=== PATIENT | female | born 1940 | race African-American/Black ===

== ENCOUNTER 2017-01-07 04:27 | Emergency (ER) | payer MEDICAID, MEDICARE ==
[~2017-01-07] VITALS: Ht 160 cm; Wt 86.2 kg
[~2017-01-07 04:27] MED LIST: ADVAIR 250-501 EACH INH; ALEVE220 MG PO; AMLODIPINE BESY10 MG ORAL; ASPIRIN EC81 MG ORAL; CIPROFLOXACIN500 M2 ORAL; MELOXICAM15 MG PO; MOTRIN400 MG PO; NORCO 10-325 T1 EACH PO; NORCO 5-325 TA1 EACH ORAL; NORVASC5 MG PO; PERCOCET 5-3251 EACH PO; VICODIN 5-5001 EACH PO; ZOLPIDEM TARTRAT5 MG ORAL
--- NOTE | 2017-01-07 04:41 | Emergency Room Report ---
History of Present Illness General Chief Complaint: To Be Triaged Source: Patient, Family Member Present Illness HPI This is a 76-year-old female with history hypertension. She presents with injury from a fall. She was walking down the steps when she missed a step and fell down a flight of stairs. She landed her face against the wall. Also complaining of nasal pain, mouth pain, left rib pain and shoulder pain bilaterally. No knee pain. No back pain. No loss of consciousness. Onset just prior to arrival. Pain is 9/10. He's not on blood thinner other than baby aspirin. Allergies: Coded Allergies: PENICILLINS (Verified Allergy, Unknown, 03/01/12) Patient History Past Medical History: see triage record, old chart reviewed, HTN Past Surgical History: other Pertinent Family History: none Social History: Denies: smoking Now: No Immunizations: other Reviewed Nursing Documentation: PMH: Agreed, PSxH: Agreed Nursing Documentation-PMH Hx Cardiac Problems: Yes Hx Hypertension: Yes Hx Asthma: Yes Hx Cancer: No Hx Gastrointestinal Problems: No Hx Neurological Problems: No Hx Neurologic Surgery: Yes - LOWER BACK SURGERY-2005 Review of Systems Eye: Denies: blurred vision, eye pain ENT: Denies: ear pain, nose congestion, throat swelling Respiratory: Denies: cough, shortness of breath Cardiovascular: Reports: chest pain, Denies: palpitations Gastrointestinal: Denies: abdominal pain, diarrhea, nausea, vomiting Musculoskeletal: Reports: joint pain, Denies: back pain Skin: Denies: rash Neurological: Denies: headache, numbness Endocrine: Denies: increased thirst, increased urine Hematologic/Lymphatic: Denies: easy bruising All Other Systems: negative except mentioned in HPI Physical Exam Sp02 EP Interpretation: reviewed, normal General Appearance: well appearing, no apparent distress, alert Head: normocephalic, other - Edema to the nose. No septal hematoma. Eyes: bilateral eye EOMI, bilateral eye PERRL ENT: hearing grossly normal, normal pharynx, other - Small abrasion hematoma to the Midline of upper lip. No dental injury. Neck: full range of motion, supple, no meningismus Respiratory: lungs clear, normal breath sounds, other - Tenderness the left lateral rib. No ecchymosis. Cardiovascular #1: regular rate, rhythm, no murmur Gastrointestinal: normal bowel sounds, non tender, no mass, no organomegaly, no bruit, non-distended Musculoskeletal: back normal, gait/station normal, normal range of motion Psychiatric: mood/affect normal Skin: warm/dry Procedures Critical Care Time Critical Care Time Critical care is mandated in this patient who presented with traumatic SDH. Patient require my urgent intervention to attenuate the risks of neurological collapse which may lead to cardiovascular collapse and . Critical care time is 35 minutes excluding any reportable procedure. Critical care time included evaluation, multiple reevaluation, looking at old charts, interpreting laboratory and diagnostic data, discussing case with patient and family and consultants, and charting. Medical Decision Making Diagnostic Impression: Primary Impression: Subdural hematoma, acute Additional Impressions: Contusion of nose Qualified Codes: S00.33XA - Contusion of nose, initial encounter Cervical strain, acute Qualified Codes: S16.1XXA - Strain of muscle, fascia and tendon at neck level , initial encounter Ribs, multiple fractures Qualified Codes: S22.42XA - Multiple fractures of ribs, left side, initial encounter for closed fracture Degenerative disc disease, cervical ER Course Patient presents with a mechanical fall and sustained a small subdural hematoma. No midline shift. She is neurologically intact, GCS of 15. Because of the intracranial bleed, she will need to be [facility] I will sign out the transfer process to Dr. Ty. CT/MRI/US Diagnostic Results CT/MRI/US Diagnostic Results : Imaging Test Ordered: CT head, CT facial bones, CT cervical spine, and CT chest Impression All CT scans were read by radiologist. CT head: Tiny acute right subdural hematoma measuring 2-[address] C-spine: No acute fracture. Degenerative changes. CT facial bones: Soft tissue swelling of the nose. No fracture. CT chest: Minimally displaced left anterior sixth and seventh rib fracture. Probable nondisplaced left eighth rib fracture. Status: improved Disposition: XFER SHT-TRM HOSP Condition: Serious KENISHA BURRIS M.D. Jan 07, 2017 04:41
[2017-01-07] MEDS ORDERED: Norco 5mg/325mg tab ORAL ONE (04:45)
[2017-01-07 06:35] VITALS: BP 135/67
[2017-01-07 07:01] LABS: BASOPHILS % (AUTO) 0.7 % (0.0-2.0); LYMPHOCYTES % (AUTO) 24.4 % (20.0-45.0); MEAN CORPUSCULAR HEMOGLOBIN 26.7 PG (27.0-31.0); MEAN CORPUSCULAR HGB CONC 30.7 G/DL (32.0-36.0); MEAN CORPUSCULAR VOLUME 87 FL (80-99); MEAN PLATELET VOLUME 5.3 FL (6.5-10.1); NEUTROPHILS % (AUTO) 68.9 % (45.0-75.0); PLATELET COUNT 258 K/UL (150-450); RED BLOOD COUNT 4.27 M/UL (4.20-5.40); RED CELL DISTRIBUTION WIDTH 16.4 % (11.6-14.8); WHITE BLOOD COUNT 8.6 K/UL (4.8-10.8)
[2017-01-07 07:11] LABS: ANION GAP 13 (5-15); CALCIUM 9.3 mg/dL (8.6-10.2); CARBON DIOXIDE 30 mEQ/L (20-30); CHLORIDE 100 mEQ/L (98-107); CREATININE 0.8 mg/dL (0.5-0.9); HEMOLYSIS 0; POTASSIUM 3.6 mEQ/L (3.4-4.9); SODIUM 143 mEQ/L (135-145)
[2017-01-07 07:28] VITALS: BP 136/63
--- NOTE | 2017-01-07 07:29 | Emergency Room Report ---
History of Present Illness General Chief Complaint: Multiple Trauma/Fall Source: Patient, Family Member Present Illness Allergies: Coded Allergies: PENICILLINS (Verified Allergy, Unknown, 03/01/12) Patient History Now: No Nursing Documentation-PMH Hx Cardiac Problems: Yes Hx Hypertension: Yes Hx Asthma: Yes Hx Cancer: No Hx Gastrointestinal Problems: No Hx Neurological Problems: No Hx Neurologic Surgery: Yes - LOWER BACK SURGERY-2005 Physical Exam Vital Signs Date Time Temp Pulse Resp B/P Pulse Ox O2 Delivery O2 Flow Rate FiO2 01/07/17 04:38 98.1 71 18 126/69 93 Room Air 01/07/17 06:35 3.0 Procedures Critical Care Time Critical Care Time 40 minutes for clinical findings Including multiple rib fractures, intracranial hemorrhage Multiple repeat evaluations not including any procedural time Medical Decision Making Diagnostic Impression: Primary Impression: Subdural hematoma, acute Additional Impressions: Ribs, multiple fractures Qualified Codes: S22.42XA - Multiple fractures of ribs, left side, initial encounter for closed fracture Contusion of nose Qualified Codes: S00.33XA - Contusion of nose, initial encounter Degenerative disc disease, cervical Cervical strain, acute Qualified Codes: S16.1XXA - Strain of muscle, fascia and tendon at neck level , initial encounter ER Course Please defer to the initial note for the history exam and findings At this time patient's blood work is at baseline levels Contact was made with Omid Fox, I spoke to the neurosurgery occup therapist Who will graciously accepted patient At this time patient is having Q. 15 minutes neurological examinations Continues to remain GCS 15 hemodynamically appropriate There is no signs of any anticoagulation And further stabilized for a higher level of care transfer Labs Test 01/07/17 06:31 01/07/17 06:45 White Blood Count 8.6 K/UL (4.8-10.8) Red Blood Count 4.27 M/UL (4.20-5.40) Hemoglobin 11.4 G/DL (12.0-16.0) Hematocrit 37.3 % (37.0-47.0) Mean Corpuscular Volume 87 FL (80-99) Mean Corpuscular Hemoglobin 26.7 PG (27.0-31.0) Mean Corpuscular Hemoglobin Concent 30.7 G/DL (32.0-36.0) Red Cell Distribution Width 16.4 % (11.6-14.8) Platelet Count 258 K/UL (150-450) Mean Platelet Volume 5.3 FL (6.5-10.1) Neutrophils (%) (Auto) 68.9 % (45.0-75.0) Lymphocytes (%) (Auto) 24.4 % (20.0-45.0) Monocytes (%) (Auto) 5.0 % (1.0-10.0) Eosinophils (%) (Auto) 1.0 % (0.0-3.0) Basophils (%) (Auto) 0.7 % (0.0-2.0) Prothrombin Time 10.0 SEC (9.30-11.50) Prothromb Time International Ratio 1.0 (0.9-1.1) Activated Partial Thromboplast Time 25 SEC (23-33) Sodium Level 143 mEQ/L (135-145) Potassium Level 3.6 mEQ/L (3.4-4.9) Chloride Level 100 mEQ/L (98-107) Carbon Dioxide Level 30 mEQ/L (20-30) Anion Gap 13 (5-15) Blood Urea Nitrogen 12 mg/dL (7-23) Creatinine 0.8 mg/dL (0.5-0.9) Estimat Glomerular Filtration Rate mL/min (>60) Glucose Level 128 mg/dL (74-106) Calcium Level 9.3 mg/dL (8.6-10.2) Rhythm Strip Diag. Results EP Interpretation: yes Rate: 68 Rhythm: NSR, no PVC's, no ectopy Last Vital Signs Date Time Temp Pulse Resp B/P Pulse Ox O2 Delivery O2 Flow Rate FiO2 01/07/17 06:35 98.0 79 29 135/67 95 Nasal Cannula 3.0 Disposition: XFER SHT-TRM HOSP Condition: Critical Referrals: Rakesh Salazar MD (PCP) PORSHA MEDINA D.O. Jan 07, 2017 07:29
[2017-01-07 07:31] LABS: APPEARANCE,URINE SLIGHTLY CLOUDY; KETONES,URINE NEGATIVE (NEGATIVE); LEUKOCYTE ESTERASE ,URINE 3+ (NEGATIVE); NITRITE,URINE NEGATIVE (NEGATIVE); PH,URINE 6.5 (4.5-8.0); PROTEIN,URINE 2+ (NEGATIVE); UROBILINOGEN,URINE NORMAL MG/DL (0.0-1.0)
[2017-01-07 07:57] LABS: SQUAMOUS EPITHELIAL CELL,UR FEW /LPF (NONE/OCC)
[2017-01-07 08:43] VITALS: BP 134/62
--- NOTE | 2017-01-07 09:05 | Diagnostic Imaging Report ---
Indication: Trauma Technique: Continuous helical transaxial imaging of the maxillofacial structures obtained without intravenous contrast administration. Coronal 2-D reformats were also obtained. Study obtained in a Siemens sensation [address] Total Dose length Product (DLP): [address] Dose Index Volume (CTDIvol): 70.38, 28.19, 17.41, 26.15, 0.15 mGy Comparison: None Findings: No definite fracture is identified. The paranasal sinuses are essentially clear. Ostiomeatal units are clear bilaterally. The orbits appear normal. Bones are osteopenic in keeping with the patient's advanced age. Mastoids are clear bilaterally. There is soft tissue swelling over the nose. Impression: Facial soft tissue contusion. No acute fracture [facility] has communicated the preliminary results to the Emergency Department. Their findings are largely concordant with this report. The CT scanner at [facility] is accredited by the [employer] and the scans are performed using protocols designed to limit radiation exposure to as low as reasonably achievable to attain images of sufficient resolution adequate for diagnostic evaluation.
--- NOTE | 2017-01-07 09:09 | Diagnostic Imaging Report ---
Indication: Chest pain and trauma Technique: Continuous helical transaxial imaging of the chest was obtained from the thoracic inlet to the upper abdomen. No intravenous contrast was administered. Coronal 2-D reformats were also obtained. Total Dose length Product (DLP): Refer to CT facial mGycm CT Dose Index Volume (CTDIvol): Refer to CT facial mGy Comparison: none Findings: The left sixth and seventh ribs are fractured anteriorly, nondisplaced. There is no hematoma, pneumothorax, hemothorax or other associated traumatic findings. There are calcifications in the right pulmonary hilum consistent with old granulomatous disease. Aorta is ectatic and shows mural calcification. There is a hiatal hernia present. There are partially imaged cyst within the left kidney measuring in the upper of 6-7 cm. There is a nonobstructive 4 mm stone in the right kidney. Mild linear left basilar densities noted likely atelectasis. Minimal bronchiectasis noted at the lung bases. There is narrowing of intervertebral discs and accompanying endplate osteophyte formation throughout the thoracic spine. Hypertrophied facet joints also demonstrated.. Impression: No evidence of a left anterior chest wall trauma with nondisplaced fractures of the sixth and seventh ribs. No associated abnormalities or significant trauma identified. Spondylosis Hiatal hernia Atherosclerotic vascular disease Partially imaged cysts suggested within the left kidney. Nonobstructive 4 mm stone in the right kidney. Mild left basal atelectasis Mild basilar bronchiectasis. [facility] has communicated the preliminary results to the Emergency Department. Their findings are largely concordant with this report. The CT scanner at [facility] is accredited by the [employer] and the scans are performed using protocols designed to limit radiation exposure to as low as reasonably achievable to attain images of sufficient resolution adequate for diagnostic evaluation.
--- NOTE | 2017-01-07 09:16 | Diagnostic Imaging Report ---
Indication: Headache Technique: Contiguous 5 mm thick transaxial imaging of the head obtained in a Siemens Sensation [address] scanner. Soft tissue and bone windows generated. Total Dose length Product (DLP): Refer to CT facial mGycm CT Dose Index Volume (CTDIvol): Refer to CT facial mGy Comparison: none Findings: There is a tiny subdural hematoma right parafalcine location extending into the right tentorial reflection. Hematoma at maximum measures 2 mm. There is no associated edema or mass effect. Mild generalized atrophy of the brain in keeping with the patient's age demonstrated. Patchy low attenuation of white matter tracts also noted in the common at this age. Ventricles and basal cisterns appear normal. Impression: A 2 mm right parafalcine subdural hematoma with extension into the right tentorium. No associated mass effect or edema. Age-related changes within the brain as discussed above. The CT scanner at [facility] is accredited by the [employer] and the scans are performed using protocols designed to limit radiation exposure to as low as reasonably achievable to attain images of sufficient resolution adequate for diagnostic evaluation.
--- NOTE | 2017-01-07 09:40 | Diagnostic Imaging Report ---
Indication: Neck pain. Technique: Continuous helical imaging of the cervical spine was obtained transaxially from the skull base to the upper thoracic spine. 2-D coronal and sagittal reformatted images were obtained. Total Dose length Product (DLP): Refer to CT facial mGycm CT Dose Index Volume (CTDIvol): Refer to CT facial mGy Comparison: None Findings: There is no acute fracture or malalignment identified. There is no soft tissue swelling identified. Moderate uncovertebral arthritis is demonstrated at multiple levels. Some of the intervertebral discs show narrowing and osteophytes. Arterial vascular plaques are demonstrated within the carotid arteries. Impression: No acute injury Moderate spondylosis The CT scanner at [facility] is accredited by the [employer] and the scans are performed using protocols designed to limit radiation exposure to as low as reasonably achievable to attain images of sufficient resolution adequate for diagnostic evaluation.
[2017-01-07 10:03] VITALS: BP 138/66
[2017-01-07 10:06] VITALS: BP 138/66
--- NOTE | 2017-01-10 08:41 | Cardiology Report ---
APPROVED REPORT EKG Measurement Heart [id number] Sinus rhythm with sinus arrhythmia with occasional premature ventricular complexes Otherwise normal ECG
== END 2017-01-07 10:07 | disposition short-term general hospital (02) ==
LOC: EMR 04:56
DX: S06.5X0A Traumatic subdural hemorrhage without loss of consciousness, initial encounter (principal); S00.33XA Contusion of nose, initial encounter; S16.1XXA Strain of muscle, fascia and tendon at neck level, initial encounter; S22.42XA Multiple fractures of ribs, left side, initial encounter for closed fracture; W10.8XXA Fall (on) (from) other stairs and steps, initial encounter; Y93.9 Activity, unspecified; Y92.9 Unspecified place or not applicable; Y99.9 Unspecified external cause status; J34.89 Other specified disorders of nose and nasal sinuses; M50.30 Other cervical disc degeneration, unspecified cervical region; Z88.0 Allergy status to penicillin; I10 Essential (primary) hypertension; J45.909 Unspecified asthma, uncomplicated; R07.9 Chest pain, unspecified; M25.50 Pain in unspecified joint
CPT/HCPCS: 36415; 70450; 70486; 71250; 72125; 80048; 81001; 85025; 85610; 85730; 93005

== ENCOUNTER 2017-05-08 15:06 | Inpatient (IN) | payer MEDICARE ==
[~2017-05-08] VITALS: Ht 160 cm; Wt 81.6 kg
[2017-05-08 15:06] VITALS: BP 149/61
[~2017-05-08 15:06] MED LIST changes: +NORVASC10 MG ORAL
[2017-05-08] MEDS ORDERED: Norco 5mg/325mg tab ORAL ONE (15:30)
--- NOTE | 2017-05-08 15:32 | Emergency Room Report ---
History of Present Illness General Chief Complaint: Pain Source: Patient (Rosita Sandra) Present Illness HPI 76-year-old female presents to the emergency department complaining of 10 out of 10 in severity sharp left-sided hip pain x1 month. Patient states pain initially was progressive and now has become constant and she has had even more difficult time ambulating. Patient states she has a history of sciatica that has also been aggravated. Patient states she fall 3 months ago and fractured several ribs on the left side she denies having injury to the hip at that time. Patient denies erythema, swelling, increased temperature palpation. 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 Denies Fevers or chills. Denies numbness tingling or loss of sensation or gross motor movements of the extremities, incontinence of bowel or bladder. Denies CP, Palpitations, LOC, AMS, dizziness, Changes in Vision, Sensation, paresthesias, or a sudden severe headache. (Rosita Sandra) Allergies: Coded Allergies: PENICILLINS (Verified Allergy, Unknown, 03/01/12) Patient History Past Medical History: see triage record Past Surgical History: none Pertinent Family History: none Now: No Reviewed Nursing Documentation: PMH: Agreed, PSxH: Agreed (Rosita Sandra) Nursing Documentation-PMH Hx Cardiac Problems: Yes Hx Hypertension: Yes Hx Asthma: Yes Hx Cancer: No Hx Gastrointestinal Problems: No Hx Neurological Problems: No Hx Neurologic Surgery: Yes - LOWER BACK SURGERY-2005 (Rosita Sandra) Review of Systems All Other Systems: negative except mentioned in HPI (Rosita Sandra) Physical Exam Vital Signs Date Time Temp Pulse Resp B/P Pulse Ox O2 Delivery O2 Flow Rate FiO2 05/08/17 14:58 99.3 81 18 144/64 100 Room Air Sp02 EP Interpretation: reviewed, normal General Appearance: no apparent distress, alert, GCS 15, non-toxic Head: normocephalic, atraumatic Eyes: bilateral eye PERRL, bilateral eye normal inspection ENT: hearing grossly normal, normal pharynx, no angioedema, normal voice Neck: full range of motion, supple/symm/no masses Respiratory: lungs clear, normal breath sounds, speaking full sentences Cardiovascular #1: regular rate, rhythm, no edema Gastrointestinal: non tender, soft, no guarding, no rebound Rectal: deferred Genitourinary: normal inspection, no CVA tenderness Musculoskeletal: other - ROM is limited due to pain, POC is laying flat. , tender - TTP to the lateral left hip, upper glute and lumbar paraspinal muscles in addition to midline ttp. no erythema, increased temperature to palpation, obvious deformities or bruises noted. Neurologic: alert, oriented x3, responsive, motor strength/tone normal, sensory intact, speech normal, other - negative incontinence, no weakness Psychiatric: judgement/insight normal, memory normal, mood/affect normal Skin: normal color, no rash, warm/dry, well hydrated (Rosita Sandra.ACasandra) Medical Decision Making PA Attestation Dr. martinez is my supervising Physician whom patient management has been discussed with. (Rosita Sandra) Medicare Attestation The history of Crystal Jordan has been reviewed and management options for her have been examined and discussed by Zane Bush. I have personally examined and interviewed the patient. (ZANE BUSH M.D.) Diagnostic Impression: Primary Impression: Intractable pain Additional Impressions: Bulging discs Hip pain, left ER Course 76-year-old female presents to the emergency department complaining of 10 out of 10 in severity sharp left-sided hip pain x1 month. Patient states pain initially was progressive and now has become constant and she has had even more difficult time ambulating. Patient states she has a history of sciatica that has also been aggravated. Patient states she fall 3 months ago and fractured several ribs on the left side she denies having injury to the hip at that time. Patient denies erythema, swelling, increased temperature palpation. 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 Denies Fevers or chills. Denies numbness tingling or loss of sensation or gross motor movements of the extremities, incontinence of bowel or bladder. Denies CP, Palpitations, LOC, AMS, dizziness, Changes in Vision, Sensation, paresthesias, or a sudden severe headache. Ddx considered but are not limited to Fracture, dislocation, contusion, Sprain/ Strain/Spasm, Epidural abscess, Neoplastic mets. Vital signs: are WNL, pt. is afebrile H&PE are most consistent with musculoskeletal injury will perform imaging to r/ o fractures/dislocations. ORDERS: - CT PELVIS NO CONTRAST: no fractures, dislocations, mild-moderate bilateral hip degeneration, calcified uterine fibroids, small fatty umbilical hernia- per official radiology report. - CT L-SPINE NO CONTRAST: disc bulges and facet arthropathy, with narrowing of the central canal and neural foraminal in multiple levels please see official report for full detail, no evidence of fractures - Per official Radiology report. -CBC: unremarkable -BMP: unremarkable -UA: * Pending ED INTERVENTIONS: - [place] PO -4mg Morphine IM DISPOSITION: at this time pt. will be admitted to Dr. Giron for intractable pain and inability to complete ADL's. Dr. Giron agreed to admit the pt. and to continue pt. care management. Labs Test 05/08/17 18:20 White Blood Count 7.6 K/UL (4.8-10.8) Red Blood Count 3.34 M/UL (4.20-5.40) Hemoglobin 10.1 G/DL (12.0-16.0) Hematocrit 30.3 % (37.0-47.0) Mean Corpuscular Volume 91 FL (80-99) Mean Corpuscular Hemoglobin 30.2 PG (27.0-31.0) Mean Corpuscular Hemoglobin Concent 33.4 G/DL (32.0-36.0) Red Cell Distribution Width 14.2 % (11.6-14.8) Platelet Count 254 K/UL (150-450) Mean Platelet Volume 4.7 FL (6.5-10.1) Neutrophils (%) (Auto) 64.4 % (45.0-75.0) Lymphocytes (%) (Auto) 27.2 % (20.0-45.0) Monocytes (%) (Auto) 6.9 % (1.0-10.0) Eosinophils (%) (Auto) 1.0 % (0.0-3.0) Basophils (%) (Auto) 0.6 % (0.0-2.0) Sodium Level 140 mEQ/L (135-145) Potassium Level 3.9 mEQ/L (3.4-4.9) Chloride Level 101 mEQ/L (98-107) Carbon Dioxide Level 29 mEQ/L (20-30) Anion Gap 10 (5-15) Blood Urea Nitrogen 17 mg/dL (7-23) Creatinine 1.0 mg/dL (0.5-0.9) Estimat Glomerular Filtration Rate mL/min (>60) Glucose Level 91 mg/dL (74-106) Calcium Level 9.1 mg/dL (8.6-10.2) (Rosita Sandra) Last Vital Signs Date Time Temp Pulse Resp B/P Pulse Ox O2 Delivery O2 Flow Rate FiO2 05/08/17 15:06 99.2 84 17 149/61 100 Room Air (Rosita Sandra) Disposition: ADMITTED INPATIENT Condition: Serious Rosita Sandra May 08, 2017 15:32 ZANE BUSH M.D. May 12, 2017 08:25
[2017-05-08] MEDS ORDERED: Morphine Sulfate 4mg/ml Inj IVP ONE ×2 (18:00→19:00)
[2017-05-08 18:30] VITALS: BP 142/63
[2017-05-08 18:31] LABS: BASOPHILS % (AUTO) 0.6 % (0.0-2.0); LYMPHOCYTES % (AUTO) 27.2 % (20.0-45.0); MEAN CORPUSCULAR HEMOGLOBIN 30.2 PG (27.0-31.0); MEAN CORPUSCULAR HGB CONC 33.4 G/DL (32.0-36.0); MEAN CORPUSCULAR VOLUME 91 FL (80-99); MEAN PLATELET VOLUME 4.7 FL (6.5-10.1); MONOCYTES % (AUTO) 6.9 % (1.0-10.0); NEUTROPHILS % (AUTO) 64.4 % (45.0-75.0); PLATELET COUNT 254 K/UL (150-450); RED BLOOD COUNT 3.34 M/UL (4.20-5.40); RED CELL DISTRIBUTION WIDTH 14.2 % (11.6-14.8); WHITE BLOOD COUNT 7.6 K/UL (4.8-10.8)
[2017-05-08 18:44] LABS: ANION GAP 10 (5-15); CALCIUM 9.1 mg/dL (8.6-10.2); CARBON DIOXIDE 29 mEQ/L (20-30); CHLORIDE 101 mEQ/L (98-107); HEMOLYSIS 0; POTASSIUM 3.9 mEQ/L (3.4-4.9); SODIUM 140 mEQ/L (135-145)
[2017-05-08] MEDS ORDERED: Morphine Sulfate 2mg/ml Inj IVP PRN (21:00)
[2017-05-08] MEDS ORDERED: LORazepam Inj 2mg/ml 1ml IV PRN (21:00)
[2017-05-08] MEDS: Heparin 5000 units/ml inj SUBQ SCH (21:00)
[2017-05-08] MEDS ORDERED: Mylanta II UD 30ml ORAL PRN (21:00)
[2017-05-08] MEDS ORDERED: Miralax 17gm pkt ORAL PRN (21:00)
[2017-05-08] MEDS ORDERED: Zolpidem 5mg tab ORAL PRN (21:00)
[2017-05-08 21:23] VITALS: BP 146/96
[2017-05-08] MEDS: Norco 10mg/325mg tab ORAL PRN (23:25)
[2017-05-09] VITALS: BP 127/67
[2017-05-09 04:00] VITALS: BP 126/71
[2017-05-09] MEDS: Norco 10mg/325mg tab ORAL PRN (06:41)
[2017-05-09 06:51] LABS: MEAN CORPUSCULAR HGB CONC 32.5 G/DL (32.0-36.0); MEAN CORPUSCULAR VOLUME 92 FL (80-99); MEAN PLATELET VOLUME 5.6 FL (6.5-10.1); PLATELET COUNT 274 K/UL (150-450); RED BLOOD COUNT 3.32 M/UL (4.20-5.40); RED CELL DISTRIBUTION WIDTH 14.3 % (11.6-14.8); WHITE BLOOD COUNT 9.1 K/UL (4.8-10.8)
[2017-05-09 06:58] LABS: INR 0.9 (0.9-1.1); PROTHROMBIN TIME 9.8 SEC (9.30-11.50)
[2017-05-09 07:34] LABS: HEMOLYSIS 1; IRON 16 ug/dL (37-145); LACTATE DEHYDROGENASE 184 U/L (135-230); TOTAL IRON BINDING CAPACITY 177 ug/dL (250-400)
[2017-05-09 07:43] VITALS: BP 113/61
[2017-05-09 07:55] LABS: ALANINE AMINOTRANSFERASE 7 U/L (3-33); ALBUMIN/GLOBULIN RATIO 0.8 (1.0-2.7); ANION GAP 12 (5-15); ASPARTATE AMINO TRANSFERASE 13 U/L (5-40); CALCIUM 9.4 mg/dL (8.6-10.2); CARBON DIOXIDE 28 mEQ/L (20-30); CHLORIDE 105 mEQ/L (98-107); HEMOLYSIS 0; POTASSIUM 4.1 mEQ/L (3.4-4.9); SODIUM 145 mEQ/L (135-145); TOTAL PROTEIN 7.4 g/dL (6.6-8.7)
[2017-05-09] MEDS: Meloxicam 15 MG TAB ORAL SCH (08:10)
[2017-05-09] MEDS: Aspirin EC 81mg tab ORAL SCH (08:10)
[2017-05-09] MEDS: Heparin 5000 units/ml inj SUBQ SCH ×2 (08:14→21:10)
[2017-05-09 08:30] LABS: ERYTHROCYTE SEDIMENTATION RATE 112 MM/HR (0-30); PATH BLOOD SMEAR/OMC SENT TO PATHOLOGIST
--- NOTE | 2017-05-09 08:35 | Consultation ---
History of Present Illness General Date patient seen: May 10, 2017 Chief Complaint: Pain Present Illness Allergies: Coded Allergies: PENICILLINS (Verified Allergy, Unknown, 03/01/12) Medication History Scheduled Amlodipine Besylate (Norvasc), 10 MG ORAL DAILY, (Reported) Amlodipine Besylate* (Amlodipine Besylate*), 10 MG ORAL DAILY, (Reported) Aspirin Ec* (Aspirin Ec*), 81 MG ORAL DAILY, (Reported) Fluticasone/Salmeterol (Advair 250-50 Diskus), 1 PUFF INH DA, (Reported) Hydrocodone Bit/Acetaminophen 10-325* ([place] 10-325*), 1 TAB PO Q6H Meloxicam* (Meloxicam*), 15 MG PO DAILY, (Reported) Scheduled PRN Naproxen Sodium (Aleve), 220 MG PO TID PRN, (Reported) Zolpidem Tartrate* (Zolpidem Tartrate*), 5 MG ORAL BEDTIME PRN for Insomnia, ( Reported) Patient History Healthcare decision maker [place] Jordan Resuscitation status Full Code Advanced Directive on File Physical Exam Last 24 Hour Vital Signs Date Time Temp Pulse Resp B/P Pulse Ox O2 Delivery O2 Flow Rate FiO2 05/09/17 08:10 78 113/61 05/09/17 07:52 78 18 Nasal Cannula 2.0 05/09/17 07:52 Nasal Cannula 2.0 28 05/09/17 07:52 96 Nasal Cannula 2.0 28 05/09/17 07:43 97.7 69 20 113/61 98 Nasal Cannula 2.0 05/09/17 07:40 97.7 05/09/17 04:00 97.7 71 22 126/71 100 Nasal Cannula 2.0 05/09/17 00:00 98.5 71 19 127/67 100 Nasal Cannula 2.0 05/08/17 22:09 73 20 Nasal Cannula 2.0 05/08/17 22:09 94 Nasal Cannula 2.0 28 05/08/17 22:09 Nasal Cannula 2.0 28 05/08/17 21:23 97.3 76 16 146/96 95 Room Air 05/08/17 20:38 99.0 82 15 142/63 100 Room Air 05/08/17 18:55 99.0 05/08/17 18:30 99.0 82 15 142/63 100 Room Air 05/08/17 16:43 99.2 05/08/17 15:06 99.2 84 17 149/61 100 Room Air 05/08/17 14:58 99.3 81 18 144/64 100 Room Air Laboratory Tests Test 05/08/17 18:20 05/09/17 04:45 White Blood Count 7.6 K/UL (4.8-10.8) 9.1 K/UL (4.8-10.8) Red Blood Count 3.34 M/UL (4.20-5.40) L 3.32 M/UL (4.20-5.40) L Hemoglobin 10.1 G/DL (12.0-16.0) L 10.0 G/DL (12.0-16.0) L Hematocrit 30.3 % (37.0-47.0) L 30.6 % (37.0-47.0) L Mean Corpuscular Volume 91 FL (80-99) 92 FL (80-99) Mean Corpuscular Hemoglobin 30.2 PG (27.0-31.0) 30.0 PG (27.0-31.0) Mean Corpuscular Hemoglobin Concent 33.4 G/DL (32.0-36.0) 32.5 G/DL (32.0-36.0) Red Cell Distribution Width 14.2 % (11.6-14.8) 14.3 % (11.6-14.8) Platelet Count 254 K/UL (150-450) 274 K/UL (150-450) Mean Platelet Volume 4.7 FL (6.5-10.1) L 5.6 FL (6.5-10.1) L Neutrophils (%) (Auto) 64.4 % (45.0-75.0) % (45.0-75.0) Lymphocytes (%) (Auto) 27.2 % (20.0-45.0) % (20.0-45.0) Monocytes (%) (Auto) 6.9 % (1.0-10.0) % (1.0-10.0) Eosinophils (%) (Auto) 1.0 % (0.0-3.0) % (0.0-3.0) Basophils (%) (Auto) 0.6 % (0.0-2.0) % (0.0-2.0) Sodium Level 140 mEQ/L (135-145) 145 mEQ/L (135-145) Potassium Level 3.9 mEQ/L (3.4-4.9) 4.1 mEQ/L (3.4-4.9) Chloride Level 101 mEQ/L (98-107) 105 mEQ/L (98-107) Carbon Dioxide Level 29 mEQ/L (20-30) 28 mEQ/L (20-30) Anion Gap 10 (5-15) 12 (5-15) Blood Urea Nitrogen 17 mg/dL (7-23) 20 mg/dL (7-23) Creatinine 1.0 mg/dL (0.5-0.9) H 1.0 mg/dL (0.5-0.9) H Estimat Glomerular Filtration Rate mL/min (>60) mL/min (>60) Glucose Level 91 mg/dL (74-106) 103 mg/dL (74-106) Calcium Level 9.1 mg/dL (8.6-10.2) 9.4 mg/dL (8.6-10.2) Neutrophils % (Manual) Pending Lymphocytes % (Manual) Pending Platelet Estimate Pending Platelet Morphology Pending Erythrocyte Sedimentation Rate 112 MM/HR (0-30) H Reticulocyte Count Pending Prothrombin Time 9.8 SEC (9.30-11.50) Prothromb Time International Ratio 0.9 (0.9-1.1) Activated Partial Thromboplast Time 26 SEC (23-33) Iron Level 16 ug/dL (37-145) L Total Iron Binding Capacity 177 ug/dL (250-400) L Percent Iron Saturation 9 % (15-50) L Unsaturated Iron Binding 161 ug/dL (112-346) Total Bilirubin 0.5 mg/dL (0.0-1.2) Aspartate Amino Transf (AST/SGOT) 13 U/L (5-40) Alanine Aminotransferase (ALT/SGPT) 7 U/L (3-33) Alkaline Phosphatase 87 U/L (35-104) Lactate Dehydrogenase 184 U/L (135-230) Total Protein 7.4 g/dL (6.6-8.7) Albumin 3.5 g/dL (3.5-5.2) Globulin 3.9 g/dL Albumin/Globulin Ratio 0.8 (1.0-2.7) L Carcinoembryonic Antigen 1.6 ng/mL Vitamin B12 Level 275 pg/mL (211-946) Folate Pending Thyroid Stimulating Hormone (TSH) 3.050 uIU/mL (0.300-4.500) Height (Feet): 5 Height (Inches): 3.00 Weight (Pounds): 180 Medications Current Medications Medications (Trade) Dose Ordered Sig/[place] Route PRN Reason Start Time Stop Time Status Last Admin Dose Admin Acetaminophen (Tylenol) 650 mg Q4H PRN ORAL fever 05/08/17 21:00 06/07/17 20:59 Acetaminophen/ Hydrocodone Bitart ([place] 10/325) 1 ea Q6H PRN ORAL pain 4-7 05/08/17 21:00 05/15/17 20:59 05/09/17 06:41 Al Hydroxide/Mg Hydroxide (Mylanta II) 30 ml Q6H PRN ORAL dyspepsia 05/08/17 21:00 06/07/17 20:59 Albuterol/ Ipratropium (DuoNeb 0.5-3(2.5)mg/3ml) 3 ml Q4H PRN HHN Shortness of Breath 05/08/17 21:45 05/13/17 21:44 Amlodipine Besylate (Norvasc) 10 mg DAILY ORAL 05/09/17 09:00 06/08/17 08:59 05/09/17 08:10 Aspirin (Ecotrin) 81 mg DAILY ORAL 05/09/17 09:00 06/08/17 08:59 05/09/17 08:10 Dextrose (Dextrose 50%) STAT PRN IV Hypoglycemia 05/08/17 19:00 06/07/17 18:59 Dextrose (Dextrose 50%) STAT PRN IV Hypoglycemia 05/08/17 21:00 06/07/17 20:59 Heparin Sodium (Porcine) (Heparin 5000 units/ml) 5,000 units EVERY 12 HOURS SUBQ 05/08/17 21:00 06/07/17 20:59 05/09/17 08:14 Lorazepam (Ativan 2mg/ml 1ml) 0.5 mg Q4H PRN IV For Anxiety 05/08/17 21:00 05/15/17 20:59 Meloxicam (Mobic) 15 mg DAILY ORAL 05/09/17 09:00 06/08/17 08:59 05/09/17 08:10 Morphine Sulfate (Morphine Sulfate) 2 mg EVERY 4 HOURS PRN IVP For Pain 4-6 05/08/17 21:00 05/15/17 20:59 05/08/17 22:19 Morphine Sulfate (Morphine Sulfate) 4 mg Q4H PRN IVP For Pain 7-05/08/17 21:00 05/15/17 20:59 Ondansetron HCl (Zofran) 4 mg Q6H PRN IVP Nausea & Vomiting 05/08/17 21:00 06/07/17 20:59 Polyethylene Glycol (Miralax) 17 gm HSPRN PRN ORAL Constipation 05/08/17 21:00 06/07/17 20:59 Zolpidem Tartrate (Ambien) 5 mg HSPRN PRN ORAL Insomnia 05/08/17 21:00 06/07/17 20:59 Assessment/Plan Assessment/Plan (1) Lumbar Radiculopathy (2) Lumbar Herniated disc (3) Lumbar DDD (4) Lumbar Spondylosis (5) H/O Lumbar surgery (6) Chronic Lumbar compression fracture (7) Left hip pain seen dictated LY HOLLIADY May 09, 2017 08:35
[2017-05-09 08:44] LABS: RETICULOCYTE COUNT 1.1 % (0.0-2.0)
[2017-05-09] MEDS: Morphine Sulfate 4mg/ml Inj IVP PRN ×2 (08:49→12:41)
[2017-05-09 09:01] LABS: EOSINOPHILS % (MANUAL) 3 % (0-3); LYMPHOCYTES % (MANUAL) 20 % (20-45); NEUTROPHILS % (MANUAL) 65 % (45-75); TOTAL CELLS COUNTED 100
[2017-05-09 09:02] LABS: ANISOCYTOSIS 1+; BAND NEUTROPHILS % (MANUAL) 0 % (0-8); BASOPHILS % (MANUAL) 0 % (0-2); PLATELET ESTIMATE ADEQUATE; PLATELET MORPHOLOGY NORMAL
--- NOTE | 2017-05-09 09:29 | Diagnostic Imaging Report ---
Indications: PAIN Technique: Spiral acquisitions obtained through the lumbar spine. Multiplanar reconstructions were generated. No IV contrast utilized. Total dose length product 512 mGycm. CTDIvol(s) 19 mGy. Dose reduction achieved using automated exposure control Comparison: No comparison lumbar spine CT. Reference is made to abdomen pelvis CT dated 01/06/2016 Findings: There is a wedge compression fracture deformity of the L3 vertebral body, which was evident on the prior abdomen pelvis CT. The vertebral body heights are otherwise preserved. No acute fractures. There is slight posterior offset of L4 on L5, probably due to degenerative change. There is degenerative disc narrowing at L4-5. The the remaining disc spaces are preserved. At L1-2, facet proliferation and narrows the right neural foramen. There is mild circumferential annular bulge which does not significantly narrow the spinal canal. At L2-3, facet degeneration results in mild narrowing of the right neural foramen. Circumferential annular bulge, facet and ligamentum flavum hypertrophy result in mild spinal stenosis at this level. At L3-4, no significant neural foraminal narrowing. There is minimal narrowing of the spinal canal due to circumferential annular bulge, facet and ligamentum flavum hypertrophy. At L4-5, no significant disc bulge or protrusion or spinal stenosis. There is minimal bilateral neural foraminal stenosis. At L5-S1, there is moderate bilateral neural foraminal stenosis. There is circumferential annular bulge and posterior osteophyte formation, which results in mild narrowing of the spinal canal. The included extraspinal soft tissues demonstrates left hydronephrosis, also described previously, as well as large upper pole left renal cyst, incompletely included. There is a small calculus in the right upper calyx. This has also been previously reported. 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
--- NOTE | 2017-05-09 10:31 | Diagnostic Imaging Report ---
Indication: PAIN Technique: Noncontrast spiral acquisitions obtained through the pelvis. Multiplanar reconstructions generated. Total dose length product 402 mGycm. CTDIvol(s) 13 mGy. Dose reduction achieved using automated exposure control Comparison: None Findings: There are degenerative changes of the lower lumbar spine. Intact sacrum. The bilateral hips are intact. Intact pubic bones. Intact bilateral iliac wings. No evidence of significant soft tissue hematoma. The pelvic viscera are remarkable for the presence of old uterine fibroids. There is a small fat-containing umbilical hernia incidentally noted. Impression: No acute bony trauma Incidental findings as noted, including calcified uterine fibroids, small fat-containing umbilical hernia The CT scanner at [facility] is accredited by the [employer] and the scans are performed using protocols designed to limit radiation exposure to as low as reasonably achievable to attain images of sufficient resolution adequate for diagnostic evaluation.
[2017-05-09 12:00] VITALS: BP 110/60
--- NOTE | 2017-05-09 12:38 | Consultation ---
History of Present Illness General Date patient seen: May 09, 2017 Chief Complaint: Pain Referring physician: Dr. Salazar Reason for Consultation: EMI, asthma Present Illness HPI 76-year-old female with hx of asthma, EMI, on Bipap at home, presented to the emergency department complaining of 10 out of 10 in severity sharp left-sided hip pain x1 month. Patient states pain initially was progressive and now has become constant and she has had even more difficult time ambulating. Patient states she has a history of sciatica that has also been aggravated. Patient states she fall 3 months ago and fractured several ribs on the left side she denies having injury to the hip at that time. She is admitted for further work up. Allergies: Coded Allergies: PENICILLINS (Verified Allergy, Unknown, 03/01/12) Medication History Scheduled Amlodipine Besylate (Norvasc), 10 MG ORAL DAILY, (Reported) Amlodipine Besylate* (Amlodipine Besylate*), 10 MG ORAL DAILY, (Reported) Aspirin Ec* (Aspirin Ec*), 81 MG ORAL DAILY, (Reported) Fluticasone/Salmeterol (Advair 250-50 Diskus), 1 PUFF INH DA, (Reported) Hydrocodone Bit/Acetaminophen 10-325* ([place] 10-325*), 1 TAB PO Q6H Meloxicam* (Meloxicam*), 15 MG PO DAILY, (Reported) Scheduled PRN Naproxen Sodium (Aleve), 220 MG PO TID PRN, (Reported) Zolpidem Tartrate* (Zolpidem Tartrate*), 5 MG ORAL BEDTIME PRN for Insomnia, ( Reported) Patient History Healthcare decision maker [place] Jordan Resuscitation status Full Code Advanced Directive on File Past Medical/Surgical History Past Medical/Surgical History: (1) EMI (obstructive sleep apnea) (2) Asthma (3) Hypertension (4) Renal calculus, right Review of Systems All Other Systems: negative except mentioned in HPI Physical Exam General Appearance: WD/WN, no apparent distress Lines, tubes and drains: peripheral, central line HEENT: normocephalic, atraumatic, anicteric Neck: non-tender, normal alignment, supple Respiratory/Chest: chest wall non-tender, lungs clear, normal breath sounds, decreased breath sounds Breasts: no masses Cardiovascular/Chest: normal peripheral pulses Abdomen: normal bowel sounds, non tender Genitourinary/Rectal: normal genital exam Extremities: normal range of motion, non-tender Skin Exam: normal pigmentation Last 24 Hour Vital Signs Date Time Temp Pulse Resp B/P Pulse Ox O2 Delivery O2 Flow Rate FiO2 05/09/17 09:19 97.7 05/09/17 08:10 78 113/61 05/09/17 07:52 78 18 Nasal Cannula 2.0 05/09/17 07:52 Nasal Cannula 2.0 05/09/17 07:52 96 Nasal Cannula 2.0 28 05/09/17 07:43 97.7 69 20 113/61 98 Nasal Cannula 2.0 05/09/17 07:40 97.7 05/09/17 04:00 97.7 71 22 126/71 100 Nasal Cannula 2.0 05/09/17 00:00 98.5 71 19 127/67 100 Nasal Cannula 2.0 05/08/17 22:09 73 20 Nasal Cannula 2.0 05/08/17 22:09 94 Nasal Cannula 2.0 05/08/17 22:09 Nasal Cannula 2.0 05/08/17 21:23 97.3 76 16 146/96 95 Room Air 05/08/17 20:38 99.0 82 15 142/63 100 Room Air 05/08/17 18:55 99.0 05/08/17 18:30 99.0 82 15 142/63 100 Room Air 05/08/17 16:43 99.2 05/08/17 15:06 99.2 84 17 149/61 100 Room Air 05/08/17 14:58 99.3 81 18 144/64 100 Room Air Laboratory Tests Test 05/08/17 18:20 05/09/17 04:45 White Blood Count 7.6 K/UL (4.8-10.8) 9.1 K/UL (4.8-10.8) Red Blood Count 3.34 M/UL (4.20-5.40) L 3.32 M/UL (4.20-5.40) L Hemoglobin 10.1 G/DL (12.0-16.0) L 10.0 G/DL (12.0-16.0) L Hematocrit 30.3 % (37.0-47.0) L 30.6 % (37.0-47.0) L Mean Corpuscular Volume 91 FL (80-99) 92 FL (80-99) Mean Corpuscular Hemoglobin 30.2 PG (27.0-31.0) 30.0 PG (27.0-31.0) Mean Corpuscular Hemoglobin Concent 33.4 G/DL (32.0-36.0) 32.5 G/DL (32.0-36.0) Red Cell Distribution Width 14.2 % (11.6-14.8) 14.3 % (11.6-14.8) Platelet Count 254 K/UL (150-450) 274 K/UL (150-450) Mean Platelet Volume 4.7 FL (6.5-10.1) L 5.6 FL (6.5-10.1) L Neutrophils (%) (Auto) 64.4 % (45.0-75.0) % (45.0-75.0) Lymphocytes (%) (Auto) 27.2 % (20.0-45.0) % (20.0-45.0) Monocytes (%) (Auto) 6.9 % (1.0-10.0) % (1.0-10.0) Eosinophils (%) (Auto) 1.0 % (0.0-3.0) % (0.0-3.0) Basophils (%) (Auto) 0.6 % (0.0-2.0) % (0.0-2.0) Sodium Level 140 mEQ/L (135-145) 145 mEQ/L (135-145) Potassium Level 3.9 mEQ/L (3.4-4.9) 4.1 mEQ/L (3.4-4.9) Chloride Level 101 mEQ/L (98-107) 105 mEQ/L (98-107) Carbon Dioxide Level 29 mEQ/L (20-30) 28 mEQ/L (20-30) Anion Gap 10 (5-15) 12 (5-15) Blood Urea Nitrogen 17 mg/dL (7-23) 20 mg/dL (7-23) Creatinine 1.0 mg/dL (0.5-0.9) H 1.0 mg/dL (0.5-0.9) H Estimat Glomerular Filtration Rate mL/min (>60) mL/min (>60) Glucose Level 91 mg/dL (74-106) 103 mg/dL (74-106) Calcium Level 9.1 mg/dL (8.6-10.2) 9.4 mg/dL (8.6-10.2) Differential Total Cells Counted 100 Neutrophils % (Manual) 65 % (45-75) Lymphocytes % (Manual) 20 % (20-45) Monocytes % (Manual) 12 % (1-10) H Eosinophils % (Manual) 3 % (0-3) Basophils % (Manual) 0 % (0-2) Band Neutrophils 0 % (0-8) Platelet Estimate Adequate Platelet Morphology Normal Hypochromasia Anisocytosis 1+ Erythrocyte Sedimentation Rate 112 MM/HR (0-30) H Reticulocyte Count 1.1 % (0.0-2.0) Prothrombin Time 9.8 SEC (9.30-11.50) Prothromb Time International Ratio 0.9 (0.9-1.1) Activated Partial Thromboplast Time 26 SEC (23-33) Iron Level 16 ug/dL (37-145) L Total Iron Binding Capacity 177 ug/dL (250-400) L Percent Iron Saturation 9 % (15-50) L Unsaturated Iron Binding 161 ug/dL (112-346) Total Bilirubin 0.5 mg/dL (0.0-1.2) Aspartate Amino Transf (AST/SGOT) 13 U/L (5-40) Alanine Aminotransferase (ALT/SGPT) 7 U/L (3-33) Alkaline Phosphatase 87 U/L (35-104) Lactate Dehydrogenase 184 U/L (135-230) Total Protein 7.4 g/dL (6.6-8.7) Albumin 3.5 g/dL (3.5-5.2) Globulin 3.9 g/dL Albumin/Globulin Ratio 0.8 (1.0-2.7) L Carcinoembryonic Antigen 1.6 ng/mL Vitamin B12 Level 275 pg/mL (211-946) Folate Pending Thyroid Stimulating Hormone (TSH) 3.050 uIU/mL (0.300-4.500) Height (Feet): 5 Height (Inches): 3.00 Weight (Pounds): 180 Medications Current Medications Medications (Trade) Dose Ordered Sig/[place] Route PRN Reason Start Time Stop Time Status Last Admin Dose Admin Acetaminophen (Tylenol) 650 mg Q4H PRN ORAL fever 05/08/17 21:00 06/07/17 20:59 Acetaminophen/ Hydrocodone Bitart ([place] 10/325) 1 ea Q6H PRN ORAL pain 4-7 05/08/17 21:00 05/15/17 20:59 05/09/17 06:41 Al Hydroxide/Mg Hydroxide (Mylanta II) 30 ml Q6H PRN ORAL dyspepsia 05/08/17 21:00 06/07/17 20:59 Albuterol/ Ipratropium (DuoNeb 0.5-3(2.5)mg/3ml) 3 ml Q4H PRN HHN Shortness of Breath 05/08/17 21:45 05/13/17 21:44 Amlodipine Besylate (Norvasc) 10 mg DAILY ORAL 05/09/17 09:00 06/08/17 08:59 05/09/17 08:10 Aspirin (Ecotrin) 81 mg DAILY ORAL 05/09/17 09:00 06/08/17 08:59 05/09/17 08:10 Dextrose (Dextrose 50%) STAT PRN IV Hypoglycemia 05/08/17 19:00 06/07/17 18:59 Dextrose (Dextrose 50%) STAT PRN IV Hypoglycemia 05/08/17 21:00 06/07/17 20:59 Gabapentin (Neurontin) 100 mg THREE TIMES A DAY ORAL 05/09/17 09:00 06/08/17 08:59 05/09/17 08:49 Heparin Sodium (Porcine) (Heparin 5000 units/ml) 5,000 units EVERY 12 HOURS SUBQ 05/08/17 21:00 06/07/17 20:59 05/09/17 08:14 Lorazepam (Ativan 2mg/ml 1ml) 0.5 mg Q4H PRN IV For Anxiety 05/08/17 21:00 05/15/17 20:59 Meloxicam (Mobic) 15 mg DAILY ORAL 05/09/17 09:00 06/08/17 08:59 05/09/17 08:10 Morphine Sulfate (Morphine Sulfate) 2 mg EVERY 4 HOURS PRN IVP For Pain 4-6 05/08/17 21:00 05/15/17 20:59 05/08/17 22:19 Morphine Sulfate (Morphine Sulfate) 4 mg Q4H PRN IVP For Pain 7-05/08/17 21:00 05/15/17 20:59 05/09/17 08:49 Ondansetron HCl (Zofran) 4 mg Q6H PRN IVP Nausea & Vomiting 05/08/17 21:00 06/07/17 20:59 Polyethylene Glycol (Miralax) 17 gm HSPRN PRN ORAL Constipation 05/08/17 21:00 06/07/17 20:59 Zolpidem Tartrate (Ambien) 5 mg HSPRN PRN ORAL Insomnia 05/08/17 21:00 06/07/17 20:59 Assessment/Plan Problem List: (1) EMI (obstructive sleep apnea) ICD Codes: G47.33 - Obstructive sleep apnea (adult) (pediatric) SNOMED: 27367912 (2) Asthma ICD Codes: J45.909 - Unspecified asthma, uncomplicated SNOMED: 118026985 (3) Intractable back pain ICD Codes: M54.9 - Dorsalgia, unspecified SNOMED: 509463423 (4) Hypertension ICD Codes: I10 - Essential (primary) hypertension SNOMED: 17455433 Assessment/Plan resume BIPAP respiratory treatment pain management neuro evaluation LON PATTEN May 09, 2017 12:38
[2017-05-09 16:00] VITALS: BP 111/59
--- NOTE | 2017-05-09 16:57 | Diagnostic Imaging Report ---
Indication: PAIN low back pain left hip pain x1 month, history of fall 3 months ago, history of lumbar surgery in 2006 Technique: Sagittal T1 and T2 fast echo, sagittal STIR, axial T1 and T2 fast spin-echo, precontrast axial T1 fat saturated, postcontrast axial and coronal T1 fat saturated images of the lumbar spine and Comparison: Reference made to lumbar spine CT dated 05/08/2017 Findings: Bony alignment is normal. There is slight anterior wedge deformity of the L3 vertebral body, previously described to be chronic, and no associated marrow edema. Normal marrow signal elsewhere. There is degenerative disc narrowing at L4-5 and L5-S1. The remainder of the disc spaces are preserved. At T12-L1, L1-L2, no significant disc bulge or protrusion, spinal stenosis, or disc space narrowing. Right neural foraminal stenosis described on prior CT is not evident on this exam. At L2-3, the disc space is preserved. There is circumferential annular bulge, which does not narrow the spinal canal. There is mild compromise of the bilateral neural foramina by the bulging disc. Spinal stenosis reported on recent CT is not evident on MRI. At L3-4, there is mild circumferential annular bulge. This does not appear significantly compromise the spinal canal. The neural foramina are preserved. At L4-5, there is degenerative disc narrowing, moderate. No significant disc bulge or protrusion. Proliferative changes on the left do result in mild narrowing of the neural foramen. At L5-S1 there is considerable circumferential annular bulge and posterior disc protrusion. In addition, there are is disc material obliterating the left lateral recess. This measures approximately 7 mm AP by 9 mm transverse by 5 mm craniocaudad, and as much more apparent than on the CT images. There is also mild transverse canal stenosis due to the bulging disc as well as facet hypertrophy. There is mild bilateral neural foraminal compromise. The included extraspinal soft tissues are remarkable for the presence of left renal cysts and dilatation of the left renal pelvis.. Impression: Large left paracentral disc protrusion/extrusion in conjunction with circumferential annular bulge at L5-S1, which obliterates the left lateral recess, and would be likely to cause a left S1 radiculopathy. This is much more apparent on MRI than on earlier CT. Other degenerative changes as detailed on a level by level basis above. 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
--- NOTE | 2017-05-09 17:31 | Neurology Progress Note ---
Objective Physical Exam Last Vital Signs Date Time Temp Pulse Resp B/P Pulse Ox O2 Delivery O2 Flow Rate FiO2 05/09/17 16:00 99.7 95 19 111/59 93 Room Air 05/09/17 07:52 2.0 28 Laboratory Tests Test 05/08/17 18:20 05/09/17 04:45 White Blood Count 7.6 K/UL (4.8-10.8) 9.1 K/UL (4.8-10.8) Red Blood Count 3.34 M/UL (4.20-5.40) L 3.32 M/UL (4.20-5.40) L Hemoglobin 10.1 G/DL (12.0-16.0) L 10.0 G/DL (12.0-16.0) L Hematocrit 30.3 % (37.0-47.0) L 30.6 % (37.0-47.0) L Mean Corpuscular Volume 91 FL (80-99) 92 FL (80-99) Mean Corpuscular Hemoglobin 30.2 PG (27.0-31.0) 30.0 PG (27.0-31.0) Mean Corpuscular Hemoglobin Concent 33.4 G/DL (32.0-36.0) 32.5 G/DL (32.0-36.0) Red Cell Distribution Width 14.2 % (11.6-14.8) 14.3 % (11.6-14.8) Platelet Count 254 K/UL (150-450) 274 K/UL (150-450) Mean Platelet Volume 4.7 FL (6.5-10.1) L 5.6 FL (6.5-10.1) L Neutrophils (%) (Auto) 64.4 % (45.0-75.0) % (45.0-75.0) Lymphocytes (%) (Auto) 27.2 % (20.0-45.0) % (20.0-45.0) Monocytes (%) (Auto) 6.9 % (1.0-10.0) % (1.0-10.0) Eosinophils (%) (Auto) 1.0 % (0.0-3.0) % (0.0-3.0) Basophils (%) (Auto) 0.6 % (0.0-2.0) % (0.0-2.0) Sodium Level 140 mEQ/L (135-145) 145 mEQ/L (135-145) Potassium Level 3.9 mEQ/L (3.4-4.9) 4.1 mEQ/L (3.4-4.9) Chloride Level 101 mEQ/L (98-107) 105 mEQ/L (98-107) Carbon Dioxide Level 29 mEQ/L (20-30) 28 mEQ/L (20-30) Anion Gap 10 (5-15) 12 (5-15) Blood Urea Nitrogen 17 mg/dL (7-23) 20 mg/dL (7-23) Creatinine 1.0 mg/dL (0.5-0.9) H 1.0 mg/dL (0.5-0.9) H Estimat Glomerular Filtration Rate mL/min (>60) mL/min (>60) Glucose Level 91 mg/dL (74-106) 103 mg/dL (74-106) Calcium Level 9.1 mg/dL (8.6-10.2) 9.4 mg/dL (8.6-10.2) Differential Total Cells Counted 100 Neutrophils % (Manual) 65 % (45-75) Lymphocytes % (Manual) 20 % (20-45) Monocytes % (Manual) 12 % (1-10) H Eosinophils % (Manual) 3 % (0-3) Basophils % (Manual) 0 % (0-2) Band Neutrophils 0 % (0-8) Platelet Estimate Adequate Platelet Morphology Normal Hypochromasia Anisocytosis 1+ Erythrocyte Sedimentation Rate 112 MM/HR (0-30) H Reticulocyte Count 1.1 % (0.0-2.0) Prothrombin Time 9.8 SEC (9.30-11.50) Prothromb Time International Ratio 0.9 (0.9-1.1) Activated Partial Thromboplast Time 26 SEC (23-33) Iron Level 16 ug/dL (37-145) L Total Iron Binding Capacity 177 ug/dL (250-400) L Percent Iron Saturation 9 % (15-50) L Unsaturated Iron Binding 161 ug/dL (112-346) Total Bilirubin 0.5 mg/dL (0.0-1.2) Aspartate Amino Transf (AST/SGOT) 13 U/L (5-40) Alanine Aminotransferase (ALT/SGPT) 7 U/L (3-33) Alkaline Phosphatase 87 U/L (35-104) Lactate Dehydrogenase 184 U/L (135-230) Total Protein 7.4 g/dL (6.6-8.7) Albumin 3.5 g/dL (3.5-5.2) Globulin 3.9 g/dL Albumin/Globulin Ratio 0.8 (1.0-2.7) L Carcinoembryonic Antigen 1.6 ng/mL Vitamin B12 Level 275 pg/mL (211-946) Folate Pending Thyroid Stimulating Hormone (TSH) 3.050 uIU/mL (0.300-4.500) Impression/Recommendations Problems: (1) Degenerative disc disease at L5-S1 level (2) left sided S1 disk prolapse with radiculopathy,acute pain syndrom (3) Intractable back pain (4) elevated ESR (5) B12 deficiency Status: unchanged Recommendations #[id number] DANTE DUNCAN May 09, 2017 17:31
[2017-05-09] MEDS ORDERED: Vitamin B12 1000mcg/ml Inj IM ONE (18:30)
--- NOTE | 2017-05-09 19:51 | History & Physical ---
History and Physical History & Physicial Dictated for Int med-Dr Salazar no. [id number]. KIMBERLY ALDRICH May 09, 2017 19:51
[2017-05-09 20:00] VITALS: BP 140/67
--- NOTE | 2017-05-09 23:00 | History and Physical Report ---
DATE OF ADMISSION: 05/08/2017 CHIEF COMPLAINT: The patient is a 76-year-old female, who presents with complaint of low back pain. HISTORY OF PRESENT ILLNESS: It began approximately a month ago. The patient began to experience low back pain. Pain is now radiating to the left hip. The patient denies trauma. The patient denies heavy lifting. The patient presented to [facility]. The patient is admitted for intractable back pain to rule out lumbar spine stenosis. REVIEW OF SYSTEMS: Constitutional: The patient denies weight loss or weight gain. The patient denies fevers or chills. HEENT: The patient denies ear or throat pain. Cardiovascular: The patient denies palpitations or chest pain. Chest: The patient denies wheezes or shortness of breath. Abdomen: The patient denies nausea, vomiting, diarrhea, or constipation. Genitourinary: The patient denies dysuria or increased frequency of urination. Neuromuscular: The patient complains of back pain as above. The patient denies seizures or generalized weakness. PAST MEDICAL HISTORY: Significant for: 1. Hypertension. 2. History of cataracts. 3. Asthma. 4. Osteoarthritis. 5. Shoulder pain. PAST SURGICAL HISTORY: Significant for: 1. Removal of breast cyst. 2. Cataract surgery. CURRENT MEDICATIONS: 1. Norvasc 10 mg one tablet p.o. daily. 2. Aspirin 81 mg one tablet p.o. daily. 3. Advair 250/50 one puff p.o. twice daily. 4. [place] 10/325 mg one p.o. q.6 h. 5. Meloxicam 15 mg one tablet p.o. nightly. 6. Naprosyn 220 mg one tablet p.o. three times daily. 7. Ambien 5 mg one tablet p.o. nightly. ALLERGIES: Penicillin. SOCIAL HISTORY: The patient is . The patient denies tobacco or alcohol use. PHYSICAL EXAMINATION: VITAL SIGNS: Temperature 97.7, respirations 20, pulse 69, and blood pressure 113/61. GENERAL: The patient is a well-developed and well-nourished female, in no apparent distress. HEENT: Eyes, pupils are equal and responsive to light and accommodation. Extraocular movements are intact. NECK: Supple without lymphadenopathy. CHEST: Lungs are clear to auscultation bilaterally without wheezes or rales. CARDIOVASCULAR: Regular rhythm and rate. S1 and S2 normal without murmurs, rubs, or gallops. ABDOMEN: Soft, nontender, and nondistended. Positive bowel sounds. No evidence of hepatosplenomegaly. Currently, no rebound or guarding. EXTREMITIES: Negative for clubbing, cyanosis, or edema. RECTAL/GENITAL: Refused. NEUROLOGIC: Cranial nerves II through XII are grossly intact without focal deficits. Motor strength is 5/5 bilaterally. Deep tendon reflexes are 2+ plantar. IMAGING: A CT scan of the lumbar spine was essentially within normal limits. A CT of the pelvis is essentially within normal limits. LABORATORY STUDIES: WBC 7.6, hemoglobin 10.1, hematocrit 30.3, and platelets 254,000. Sodium 140, potassium 3.9, chloride 101, CO2 29, BUN 17, and creatinine 1.0. Glucose 91. ASSESSMENT: This is a 76-year-old female with: 1. Lumbar pain. 2. Radiculopathy to left hip. 3. Hypertension. 4. History of cataracts. 5. Asthma. 6. Osteoarthritis. TREATMENT: 1. Lumbar pain/radiculopathy. Neurology consultation has been obtained with Dr. Bernal. An MRI of the lumbar spine is pending. We will recommendations of Neurology. 2. Hypertension. Continue amlodipine as above. 3. History of cataracts. 4. Asthma. Continue Advair as above. 5. Osteoarthritis. Nate Jones M.D. DR: BHARATH JOB#: [id number] CC:
[2017-05-10 00:24] VITALS: BP 142/70
--- NOTE | 2017-05-10 00:45 | Consultation ---
DATE OF CONSULTATION: 05/09/2017 NEUROLOGICAL CONSULTATION CONSULTING PHYSICIAN: Anthony Bernal M.D. REQUESTING PHYSICIAN: Rakesh Salazar M.D. HISTORY OF PRESENT ILLNESS: This is a 76-year-old female, seen in neurological consultation to evaluate intractable low back pain. The patient informed me that about 2 months ago, she started to develop the pain in the left hip, left gluteus region at times radiating to left lower extremity. Over time, pain has become progressively worse in the last few days, which leveled 10/10, persistent, aggravated by any attempt to turn around or ambulate. The patient now recalled that about 3 months ago, she had an accidental fall landing on her left side. Due to severity of pain, she was brought to emergency room. Her vital signs on admission were stable, although her temperature was 99.3. Her initial diagnostic studies included mild anemia with hemoglobin 10.1 and hematocrit 30.3, elevated sedimentation rate of 112, coagulopathy, chemistry panel, normal TSH, and low B12 of 275. Coagulation panel normal. Imaging studies included a CT scan of the lumbar spine. This revealed a multilevel degenerative joint disease, chronic L2 compression fracture, and left hydronephrosis. Pelvic CT, no fracture or dislocation. MRI of the lumbosacral spine revealed a large left paracentral disc extrusion in conjunction with annual bulge of L5-S1, obliterating left lateral recess, probably causing left S1 radiculopathy, spinal stenosis and neuroforaminal stenosis, overall less striking on MRI than on CT. Chronic L2 compression fracture deformity was also noted. Since admission to present, there was some reduction in pain while patient is maintained on pain management. PAST MEDICAL HISTORY: The patient has a history of lumbar spine surgery in 2005. There is history of bronchial asthma, hypertension, and coronary artery disease. MEDICATIONS: Treatment prior to admission included amlodipine, aspirin, Advair, [place] p.r.n., meloxicam 15 mg, Naprosyn 220 mg t.i.d. and zolpidem. ALLERGIES: Penicillin. SOCIAL HISTORY: Lives with her family. There is no alcohol or drug abuse. Nonsmoker. FAMILY HISTORY: Noncontributory. REVIEW OF SYMPTOMS: Intractable left hip pain radiating to left lower extremity increasing with attempt to ambulate. Numbness and tingling in the left hand for the last few months. No pain or discomfort in the right upper or right lower extremity. Denies chest pain or palpitations. No respiratory problems. Denies abdominal pain, but has some urinary incontinence. She has nonproductive cough. PHYSICAL EXAMINATION: GENERAL: A well-developed, moderately obese female, lying on her right side. VITAL SIGNS: Stable. Temperature 99.7 degrees and blood pressure 111/59. HEENT: Head, normocephalic. No evidence of trauma. Eyes, ears, and throat are clear. NECK: Supple. No meningeal signs. MUSCULOSKELETAL EXAMINATION: Tenderness on palpation to cervical lumbar region. Straight leg raising test mildly positive on the left. There is urinary incontinence. PERIPHERAL PULSES: 1+ symmetric. NEUROLOGIC: Mental Status: She is alert and oriented x3 with no evidence of aphasia or apraxia. Cognitive function normal. Cranial Nerves CRANIAL NERVE II: Pupils both responding to light and accommodation. Extraocular movements intact. CRANIAL NERVE V: Normal corneal responses. CRANIAL NERVE VII: No facial asymmetry. CRANIAL NERVE VIII: Grossly normal hearing. CRANIAL NERVE IX THROUGH XII: Tongue is in midline. Symmetric palate elevation. MOTOR EXAMINATION: Revealed normal muscle tone and strength in both upper extremities. Normal strength in both lower extremities except 5-/5 with left foot dorsiflexion and hip flexion probably limited by pain. Deep tendon reflexes depressed in both upper and lower extremities. Plantar responses flexor. SENSORY EXAMINATION: Inconsistent, but appears normal to pinprick at times, with hypersensitivity to pin on the left leg. Gait not tested, but reportedly very antalgic. Able to get up and ambulate only with assistance. IMPRESSION: 1. Lumbar discogenic disease with significant left L5-S1 disc prolapse with radiculopathic pain. 2. Hypertension. 3. Chronic obstructive pulmonary disease. 4. Elevated sedimentation rate. 5. Mild anemia. 6. Obesity. 7. History of coronary artery disease. RECOMMENDATION: Presence of sedimentation rate to be followed by CRP, MANJINDER, and rheumatological studies to rule out collagen vascular disease. Continue with the pain management, anti-inflammatory agents. With the presence of intractable pain, the patient may be a good candidate for surgical treatment of L5-S1 disc prolapse. Spine surgery assessment is pending. Thank you for allowing me to see this interesting patient in neurological consultation. Anthony Bernal M.D. DR: EUSEBIO JOB#: [id number] CC:
--- NOTE | 2017-05-10 02:15 | Consultation ---
DATE OF CONSULTATION: 05/09/2017 PAIN MANAGEMENT CONSULTATION CONSULTING PHYSICIAN: Sean Duffy M.D. REFERRING PHYSICIAN: Prince Giron M.D. and Rakesh Salazar M.D. PHYSICIAN STICKER OPERATOR: Nima Drake CHIEF COMPLAINT: Low back pain. HISTORY OF PRESENT ILLNESS: This is a 76-year-old female who has been seen on the Med/Surg floor of [facility] for initial comprehensive pain management consultation. The patient has been having low back pain for many years, had back surgery eight years ago, however, for the past two months has been having chronic constant pain rating at 10/10, describing as sharp shooting pain radiating down bilateral extremities, left more than right, decreasing with movement, and nothing has been helping to relieve the pain. The patient reports that she had fallen about three months ago and since that time, the pain in her lower back has worsened. CT scan of lumbar spine was done, which showed chronic L3 compression fracture, multilevel degenerative disk disease and, however, has constant pain at that side, radiating to the left lower extremity. Pelvic CT was also done showing no acute bony trauma. At this time, the patient is on [place] 10/325 mg one tablet every six hours as needed for moderate pain and morphine 2 to 4 mg IV every four hours as needed for pain. We were consulted so that the patient would have adequate pain control while here in the hospital. PAST MEDICAL HISTORY: Hypertension and asthma. PAST SURGICAL HISTORY: Lumbar surgery. ALLERGIES: Penicillin. MEDICATIONS: [place]. SOCIAL HISTORY: Denies smoking tobacco, drinking alcohol, or drug abuse. REVIEW OF SYSTEMS: Denies rash, fever, chills, sweating, dizziness, drowsiness, blurred vision, sore throat, or change in hearing. No nausea, vomiting, diarrhea, or blood in stool or urine. No bowel or bladder incontinence. No dysuria. The patient has been complaining of low back pain. PHYSICAL EXAMINATION: GENERAL: Alert, awake, and oriented. VITAL SIGNS: Stable. HEENT: PERRLA. NECK: Range of motion is full in all directions. No tenderness to paracervical muscles. No adenopathy. LUNGS: Decreased breath sounds bilaterally. HEART: S1 and S2, regular. ABDOMEN: Obese. BACK: Range of motion is decreased in flexion and extension with tenderness to paraspinal muscles, trapezius, and rhomboid muscles with surgical scar noted in midline of lumbar spine. EXTREMITIES: Upper extremity range of motion is full in all directions. Motor is intact. No cyanosis. No clubbing. No edema. Sensory is intact. Reflexes are unobtainable . No adenopathy. Lower extremity range of motion is decreased due to the patient's clinical condition. Motor being on the right 4/5 in all muscles. On the left, unable to obtain due to the patient's clinical condition with positive straight leg raising. No cyanosis. No clubbing. Sensory is intact. Reflexes are unobtainable . No adenopathy. ASSESSMENT AND PLAN: This is a 76-year-old female with lumbar radiculopathy, lumbar herniated disk, lumbar degenerative disk disease, lumbar spondylosis, history of lumbar surgery, chronic lumbar compression fracture, left hip pain. The patient will be continued on morphine and [place], will be started on Neurontin 100 mg three times a day. At this time, we will be ordering an MRI of the lumbar spine and left hip with and without contrast to rule out further pathology. The patient was discussed with Dr. Duffy and Dr. Duffy concurred. We will follow the patient. Thank you very much for the courtesy of this consultation. Sean Duffy M.D. LAURA Drake DR: Varsha JOB#: [id number] CC: KAMILLA
[2017-05-10 04:00] VITALS: BP 138/74
[2017-05-10 05:52] LABS: BASOPHILS % (AUTO) 0.5 % (0.0-2.0); EOSINOPHILS % (AUTO) 1.8 % (0.0-3.0); LYMPHOCYTES % (AUTO) 31.9 % (20.0-45.0); MEAN CORPUSCULAR HEMOGLOBIN 28.7 PG (27.0-31.0); MEAN CORPUSCULAR HGB CONC 30.9 G/DL (32.0-36.0); MEAN CORPUSCULAR VOLUME 93 FL (80-99); MEAN PLATELET VOLUME 5.3 FL (6.5-10.1); MONOCYTES % (AUTO) 8.7 % (1.0-10.0); NEUTROPHILS % (AUTO) 57.2 % (45.0-75.0); PLATELET COUNT 260 K/UL (150-450); RED BLOOD COUNT 3.36 M/UL (4.20-5.40); RED CELL DISTRIBUTION WIDTH 14.5 % (11.6-14.8); WHITE BLOOD COUNT 10.1 K/UL (4.8-10.8)
[2017-05-10 06:27] LABS: ANION GAP 9 (5-15); CALCIUM 9.1 mg/dL (8.6-10.2); CARBON DIOXIDE 30 mEQ/L (20-30); CHLORIDE 105 mEQ/L (98-107); CREATININE 1.1 mg/dL (0.5-0.9); HEMOLYSIS 1; POTASSIUM 4.5 mEQ/L (3.4-4.9); SODIUM 144 mEQ/L (135-145)
[2017-05-10 08:03] VITALS: BP 119/60
[2017-05-10] MEDS: Aspirin EC 81mg tab ORAL SCH (08:31)
[2017-05-10] MEDS: Meloxicam 15 MG TAB ORAL SCH (08:31)
[2017-05-10] MEDS: Heparin 5000 units/ml inj SUBQ SCH ×2 (09:25→21:56)
[2017-05-10 11:29] VITALS: BP 123/72
--- NOTE | 2017-05-10 13:20 | Diagnostic Imaging Report ---
Indications: Left hip pain for one month, fall 3 months ago Technique: Coronal and axial T1-weighted fast spin-echo and STIR differences the pelvis, coronal, sagittal, and axial proton density weighted fat saturated fast spin echo sequences of the left hip performed without IV or intra-articular gadolinium administration. Findings: Comparison: CT pelvis 05/08/2017 Small amount of fluid is present in each hip joint space, relatively symmetric. Bilateral acetabula a femoral heads demonstrate normal configuration and marrow signal characteristics. No fracture, other marrow edema, lytic destruction, or other acute change demonstrated. No significant degenerative change, avascular necrosis, or other chronic change demonstrated. Surrounding soft tissues are unremarkable and symmetric side to side. Lower lumbar disc spaces are narrowed with marginal osteophyte formation. Apparent focal posterior disc protrusion at L5-S1. Bilateral sacroiliac joints intact, unremarkable in appearance. Multiple circumscribed masses in the/emanating from the uterine myometrium, largest 3.7 cm, hypointense on STIR images. Mild edema in the subcutaneous soft tissues of the perineum and in the left posterior paraspinous musculature at the level of S1. IMPRESSION: Unremarkable left hip Lumbar degenerative spondylosis. See report of upper MRI lumbar spine performed concurrently Uterine fibroids Perineal subcutaneous and upper sacral posterior paraspinous intramuscular edema, nonspecific
--- NOTE | 2017-05-10 14:56 | General Progress Note ---
Assessment/Plan Assessment/Plan (1) Lumbar Radiculopathy (2) Lumbar Herniated disc (3) Lumbar DDD (4) Lumbar Spondylosis (5) H/O Lumbar surgery (6) Chronic Lumbar compression fracture (7) Left hip pain Pt will continue Morphine, [place] and increase Neurontin to 200mg. We recommend spine consultation as per drag car racer D/w Dr. Duffy and he concurred. Subjective Date patient seen: May 10, 2017 Time patient seen: 02:00 - pm Allergies: Coded Allergies: PENICILLINS (Verified Allergy, Unknown, 03/01/12) Subjective REVIEW OF SYSTEMS: Denies rash, fever, chills, sweating, dizziness, drowsiness, blurred vision, sore throat, or change in hearing. No nausea, vomiting, diarrhea, or blood in stool or urine. No bowel or bladder incontinence. No dysuria. The patient has been complaining of low back pain. SUBJECTIVE: Patient is in bed reports that the pain has been stable on the medication, however can be severe with walking. I reviewed the MRI with the patient and we recommend pt to be seen by spinal surgeon as per drag car racer. Objective Last 24 Hour Vital Signs Date Time Temp Pulse Resp B/P Pulse Ox O2 Delivery O2 Flow Rate FiO2 05/10/17 11:29 99.1 89 20 123/72 99 Nasal Cannula 3.0 05/10/17 09:23 87 119/60 05/10/17 08:16 87 18 Nasal Cannula 3.0 32 05/10/17 08:15 Nasal Cannula 3.0 32 05/10/17 08:15 99 Nasal Cannula 3.0 32 05/10/17 08:03 100.0 90 19 119/60 99 Nasal Cannula 3.0 05/10/17 04:00 97.8 110 20 138/74 93 Nasal Cannula 4.0 05/10/17 00:24 97.7 105 20 142/70 93 Nasal Cannula 4.0 05/09/17 20:13 95 Nasal Cannula 2.0 28 05/09/17 20:13 Nasal Cannula 2.0 28 05/09/17 20:00 97.8 108 19 140/67 92 Nasal Cannula 4.0 05/09/17 19:00 75 18 Nasal Cannula 2.0 28 05/09/17 16:00 99.7 95 19 111/59 93 Room Air Intake and Output 05/09/17 05/10/17 19:00 07:00 Intake Total 200 ml Balance 200 ml Intake Oral 200 ml # Voids 3 2 Laboratory Tests 05/10/17 05:15: White Blood Count 10.1, Red Blood Count 3.36L, Hemoglobin 9.6L, Hematocrit 31.2L , Mean Corpuscular Volume 93, Mean Corpuscular Hemoglobin 28.7, Mean Corpuscular Hemoglobin Concent 30.9L, Red Cell Distribution Width 14.5, Platelet Count 260, Mean Platelet Volume 5.3L, Neutrophils (%) (Auto) 57.2, Lymphocytes (%) (Auto) 31.9, Monocytes (%) (Auto) 8.7, Eosinophils (%) (Auto) 1.8, Basophils (%) (Auto) 0.5, Sodium Level 144, Potassium Level 4.5, Chloride Level 105, Carbon Dioxide Level 30, Anion Gap 9, Blood Urea Nitrogen 21, Creatinine 1.1H, Estimat Glomerular Filtration Rate , Glucose Level 109H, Calcium Level 9.1 Height (Feet): 5 Height (Inches): 3.00 Weight (Pounds): 180 Objective GENERAL: Alert, awake, and oriented x3 HEENT: PERRLA. NECK: Range of motion is full in all directions. No tenderness to paracervical muscles. No adenopathy. LUNGS: Decreased breath sounds bilaterally. HEART: S1 and S2, regular. ABDOMEN: Obese. BACK: Range of motion is decreased in flexion and extension with tenderness to paraspinal muscles, trapezius, and rhomboid muscles with surgical scar noted in midline of lumbar spine. EXTREMITIES: No cyanosis. No clubbing. No edema. NEURO: No changes. Procedure: MRI L Spine w/wo Contrast Findings: Bony alignment is normal. There is slight anterior wedge deformity of the L3 vertebral body, previously described to be chronic, and no associated marrow edema. Normal marrow signal elsewhere. There is degenerative disc narrowing at L4-5 and L5-S1. The remainder of the disc spaces are preserved. At T12-L1, L1-L2, no significant disc bulge or protrusion, spinal stenosis, or disc space narrowing. Right neural foraminal stenosis described on prior CT is not evident on this exam. At L2-3, the disc space is preserved. There is circumferential annular bulge, which does not narrow the spinal canal. There is mild compromise of the bilateral neural foramina by the bulging disc. Spinal stenosis reported on recent CT is not evident on MRI. At L3-4, there is mild circumferential annular bulge. This does not appear significantly compromise the spinal canal. The neural foramina are preserved. At L4-5, there is degenerative disc narrowing, moderate. No significant disc bulge or protrusion. Proliferative changes on the left do result in mild narrowing of the neural foramen. At L5-S1 there is considerable circumferential annular bulge and posterior disc protrusion. In addition, there are is disc material obliterating the left lateral recess. This measures approximately 7 mm AP by 9 mm transverse by 5 mm craniocaudad, and as much more apparent than on the CT images. There is also mild transverse canal stenosis due to the bulging disc as well as facet hypertrophy. There is mild bilateral neural foraminal compromise. The included extraspinal soft tissues are remarkable for the presence of left renal cysts and dilatation of the left renal pelvis.. Impression: Large left paracentral disc protrusion/extrusion in conjunction with circumferential annular bulge at L5-S1, which obliterates the left lateral recess, and would be likely to cause a left S1 radiculopathy. This is much more apparent on MRI than on earlier CT. Other degenerative changes as detailed on a level by level basis above. 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 Procedure: MRI HIP LEFT NO CONTRAST Small amount of fluid is present in each hip joint space, relatively symmetric. Bilateral acetabula a femoral heads demonstrate normal configuration and marrow signal characteristics. No fracture, other marrow edema, lytic destruction, or other acute change demonstrated. No significant degenerative change, avascular necrosis, or other chronic change demonstrated. Surrounding soft tissues are unremarkable and symmetric side to side. Lower lumbar disc spaces are narrowed with marginal osteophyte formation. Apparent focal posterior disc protrusion at L5-S1. Bilateral sacroiliac joints intact, unremarkable in appearance. Multiple circumscribed masses in the/emanating from the uterine myometrium, largest 3.7 cm, hypointense on STIR images. Mild edema in the subcutaneous soft tissues of the perineum and in the left posterior paraspinous musculature at the level of S1. IMPRESSION: Unremarkable left hip Lumbar degenerative spondylosis. See report of upper MRI lumbar spine performed concurrently Uterine fibroids Perineal subcutaneous and upper sacral posterior paraspinous intramuscular edema, nonspecific LY HOLLIDAY May 10, 2017 14:56
[2017-05-10 15:53] VITALS: BP 118/74
--- NOTE | 2017-05-10 18:46 | Internal Med Progress Note ---
Subjective Date of Service: May 10, 2017 Physician Name KarenKimberly Attending Physician Rakesh Salazar MD Current Medications Medications (Trade) Dose Ordered Sig/[place] Route PRN Reason Start Time Stop Time Status Last Admin Dose Admin Acetaminophen (Tylenol) 650 mg Q4H PRN ORAL fever 05/08/17 21:00 06/07/17 20:59 Acetaminophen/ Hydrocodone Bitart ([place] 10/325) 1 ea Q6H PRN ORAL pain 4-7 05/08/17 21:00 05/15/17 20:59 05/09/17 06:41 Al Hydroxide/Mg Hydroxide (Mylanta II) 30 ml Q6H PRN ORAL dyspepsia 05/08/17 21:00 06/07/17 20:59 Albuterol/ Ipratropium (DuoNeb 0.5-3(2.5)mg/3ml) 3 ml Q4H PRN HHN Shortness of Breath 05/08/17 21:45 05/13/17 21:44 Amlodipine Besylate (Norvasc) 10 mg DAILY ORAL 05/09/17 09:00 06/08/17 08:59 05/10/17 09:23 Aspirin (Ecotrin) 81 mg DAILY ORAL 05/09/17 09:00 06/08/17 08:59 05/10/17 08:31 Dextrose (Dextrose 50%) STAT PRN IV Hypoglycemia 05/08/17 19:00 06/07/17 18:59 Dextrose (Dextrose 50%) STAT PRN IV Hypoglycemia 05/08/17 21:00 06/07/17 20:59 Gabapentin (Neurontin) 200 mg THREE TIMES A DAY ORAL 05/10/17 18:00 06/09/17 17:59 05/10/17 17:43 Heparin Sodium (Porcine) (Heparin 5000 units/ml) 5,000 units EVERY 12 HOURS SUBQ 05/08/17 21:00 06/07/17 20:59 05/10/17 09:25 Lorazepam (Ativan 2mg/ml 1ml) 0.5 mg Q4H PRN IV For Anxiety 05/08/17 21:00 05/15/17 20:59 Meloxicam (Mobic) 15 mg DAILY ORAL 05/09/17 09:00 06/08/17 08:59 05/10/17 08:31 Morphine Sulfate (Morphine Sulfate) 2 mg EVERY 4 HOURS PRN IVP For Pain 4-6 05/08/17 21:00 05/15/17 20:59 05/08/17 22:19 Morphine Sulfate (Morphine Sulfate) 4 mg Q4H PRN IVP For Pain 7-10 05/08/17 21:00 05/15/17 20:59 05/09/17 12:41 Ondansetron HCl (Zofran) 4 mg Q6H PRN IVP Nausea & Vomiting 05/08/17 21:00 06/07/17 20:59 Polyethylene Glycol (Miralax) 17 gm HSPRN PRN ORAL Constipation 05/08/17 21:00 06/07/17 20:59 Zolpidem Tartrate (Ambien) 5 mg HSPRN PRN ORAL Insomnia 05/08/17 21:00 06/07/17 20:59 Allergies: Coded Allergies: PENICILLINS (Verified Allergy, Unknown, 03/01/12) ROS Limited/Unobtainable: No Constitutional: Reports: no symptoms HEENT: Reports: no symptoms Cardiovascular: Reports: no symptoms Respiratory: Reports: no symptoms Gastrointestinal/Abdominal: Reports: no symptoms Genitourinary: Reports: no symptoms Neurologic/Psychiatric: Reports: no symptoms Subjective 76 YO F admitted with lumbar pain. Cover for Int Med-Dr Salazar. Await neurosurgery consult. Objective Last Vital Signs Date Time Temp Pulse Resp B/P Pulse Ox O2 Delivery O2 Flow Rate FiO2 05/10/17 15:53 99.0 80 20 118/74 95 Nasal Cannula 3.0 05/10/17 08:16 32 Laboratory Tests Test 05/10/17 05:15 White Blood Count 10.1 K/UL (4.8-10.8) Red Blood Count 3.36 M/UL (4.20-5.40) L Hemoglobin 9.6 G/DL (12.0-16.0) L Hematocrit 31.2 % (37.0-47.0) L Mean Corpuscular Volume 93 FL (80-99) Mean Corpuscular Hemoglobin 28.7 PG (27.0-31.0) Mean Corpuscular Hemoglobin Concent 30.9 G/DL (32.0-36.0) L Red Cell Distribution Width 14.5 % (11.6-14.8) Platelet Count 260 K/UL (150-450) Mean Platelet Volume 5.3 FL (6.5-10.1) L Neutrophils (%) (Auto) 57.2 % (45.0-75.0) Lymphocytes (%) (Auto) 31.9 % (20.0-45.0) Monocytes (%) (Auto) 8.7 % (1.0-10.0) Eosinophils (%) (Auto) 1.8 % (0.0-3.0) Basophils (%) (Auto) 0.5 % (0.0-2.0) Sodium Level 144 mEQ/L (135-145) Potassium Level 4.5 mEQ/L (3.4-4.9) Chloride Level 105 mEQ/L (98-107) Carbon Dioxide Level 30 mEQ/L (20-30) Anion Gap 9 (5-15) Blood Urea Nitrogen 21 mg/dL (7-23) Creatinine 1.1 mg/dL (0.5-0.9) H Estimat Glomerular Filtration Rate mL/min (>60) Glucose Level 109 mg/dL (74-106) H Calcium Level 9.1 mg/dL (8.6-10.2) Intake and Output 05/09/17 05/10/17 19:00 07:00 Intake Total 200 ml Balance 200 ml Intake Oral 200 ml # Voids 3 2 Objective General: alert, cooperative, no distress, appears stated age Head: normocephalic, without obvious abnormality, atraumatic Eyes: conjunctivae/corneas clear. PERRL, EOM's intact Throat: lips, mucosa, and tongue normal. MMM Neck: supple, symmetrical, trachea midline, and no JVD Lungs: clear to auscultation bilaterally Heart: regular rate and rhythm, S1, S2 normal, no murmur, click, rub or gallop Abdomen: soft, non-tender, non-distended, bowel sounds normal; no masses or organomegaly Extremities: extremities normal, atraumatic, no cyanosis or edema Pulses: 2+ and symmetric Skin: skin color, texture, turgor normal; no rashes or lesions Neurologic: grossly normal, no focal deficits Assessment/Plan Problem List: (1) Intractable back pain Assessment & Plan: See pain management note. (2) left sided S1 disk prolapse with radiculopathy,acute pain syndrom Assessment & Plan: See neurology note. Await neurosurgery consult. (3) Hypertension (4) Hip pain, left (5) Asthma Status: not improved KIMBERLY ALDRICH May 10, 2017 18:46
[2017-05-10 20:00] VITALS: BP 125/59
--- NOTE | 2017-05-10 22:23 | Pulmonology Progress Note ---
Assessment/Plan Problems: (1) left sided S1 disk prolapse with radiculopathy,acute pain syndrom (2) Degenerative disc disease at L5-S1 level (3) EMI (obstructive sleep apnea) (4) Asthma (5) Intractable back pain (6) Hypertension Assessment/Plan awaiting spine evaluation pain management all notes reviewed d/w pain specialist Subjective ROS Limited/Unobtainable: No Constitutional: Reports: no symptoms HEENT: Repors: no symptoms Allergies: Coded Allergies: PENICILLINS (Verified Allergy, Unknown, 03/01/12) Objective Last 24 Hour Vital Signs Date Time Temp Pulse Resp B/P Pulse Ox O2 Delivery O2 Flow Rate FiO2 05/10/17 19:30 97 Nasal Cannula 3.0 32 05/10/17 19:30 80 18 Nasal Cannula 3.0 32 05/10/17 19:30 Nasal Cannula 3.0 32 05/10/17 15:53 99.0 80 20 118/74 95 Nasal Cannula 3.0 05/10/17 11:29 99.1 89 20 123/72 99 Nasal Cannula 3.0 05/10/17 09:23 87 119/60 05/10/17 08:16 87 18 Nasal Cannula 3.0 32 05/10/17 08:15 Nasal Cannula 3.0 32 05/10/17 08:15 99 Nasal Cannula 3.0 32 05/10/17 08:03 100.0 90 19 119/60 99 Nasal Cannula 3.0 05/10/17 04:00 97.8 110 20 138/74 93 Nasal Cannula 4.0 05/10/17 00:24 97.7 105 20 142/70 93 Nasal Cannula 4.0 Intake and Output 05/09/17 05/10/17 19:00 07:00 Intake Total 200 ml Balance 200 ml Intake Oral 200 ml # Voids 3 2 General Appearance: WD/WN HEENT: normocephalic, atraumatic Cardiovascular: normal peripheral pulses, normal rate Abdomen: normal bowel sounds, soft, non tender Genitourinary: normal external genitalia Laboratory Tests 05/10/17 05:15: White Blood Count 10.1, Red Blood Count 3.36L, Hemoglobin 9.6L, Hematocrit 31.2L , Mean Corpuscular Volume 93, Mean Corpuscular Hemoglobin 28.7, Mean Corpuscular Hemoglobin Concent 30.9L, Red Cell Distribution Width 14.5, Platelet Count 260, Mean Platelet Volume 5.3L, Neutrophils (%) (Auto) 57.2, Lymphocytes (%) (Auto) 31.9, Monocytes (%) (Auto) 8.7, Eosinophils (%) (Auto) 1.8, Basophils (%) (Auto) 0.5, Sodium Level 144, Potassium Level 4.5, Chloride Level 105, Carbon Dioxide Level 30, Anion Gap 9, Blood Urea Nitrogen 21, Creatinine 1.1H, Estimat Glomerular Filtration Rate , Glucose Level 109H, Calcium Level 9.1 Current Medications Medications (Trade) Dose Ordered Sig/[place] Route PRN Reason Start Time Stop Time Status Last Admin Dose Admin Acetaminophen (Tylenol) 650 mg Q4H PRN ORAL fever 05/08/17 21:00 06/07/17 20:59 Acetaminophen/ Hydrocodone Bitart ([place] 10/325) 1 ea Q6H PRN ORAL pain 4-7 05/08/17 21:00 05/15/17 20:59 05/09/17 06:41 Al Hydroxide/Mg Hydroxide (Mylanta II) 30 ml Q6H PRN ORAL dyspepsia 05/08/17 21:00 06/07/17 20:59 Albuterol/ Ipratropium (DuoNeb 0.5-3(2.5)mg/3ml) 3 ml Q4H PRN HHN Shortness of Breath 05/08/17 21:45 05/13/17 21:44 Amlodipine Besylate (Norvasc) 10 mg DAILY ORAL 05/09/17 09:00 06/08/17 08:59 05/10/17 09:23 Aspirin (Ecotrin) 81 mg DAILY ORAL 05/09/17 09:00 06/08/17 08:59 05/10/17 08:31 Dextrose (Dextrose 50%) STAT PRN IV Hypoglycemia 05/08/17 19:00 06/07/17 18:59 Dextrose (Dextrose 50%) STAT PRN IV Hypoglycemia 05/08/17 21:00 06/07/17 20:59 Gabapentin (Neurontin) 200 mg THREE TIMES A DAY ORAL 05/10/17 18:00 06/09/17 17:59 05/10/17 17:43 Heparin Sodium (Porcine) (Heparin 5000 units/ml) 5,000 units EVERY 12 HOURS SUBQ 05/08/17 21:00 06/07/17 20:59 05/10/17 21:56 Lorazepam (Ativan 2mg/ml 1ml) 0.5 mg Q4H PRN IV For Anxiety 05/08/17 21:00 05/15/17 20:59 Meloxicam (Mobic) 15 mg DAILY ORAL 05/09/17 09:00 06/08/17 08:59 05/10/17 08:31 Morphine Sulfate (Morphine Sulfate) 2 mg EVERY 4 HOURS PRN IVP For Pain 4-6 05/08/17 21:00 05/15/17 20:59 05/08/17 22:19 Morphine Sulfate (Morphine Sulfate) 4 mg Q4H PRN IVP For Pain 7-05/08/17 21:00 05/15/17 20:59 05/09/17 12:41 Ondansetron HCl (Zofran) 4 mg Q6H PRN IVP Nausea & Vomiting 05/08/17 21:00 06/07/17 20:59 Polyethylene Glycol (Miralax) 17 gm HSPRN PRN ORAL Constipation 05/08/17 21:00 06/07/17 20:59 Zolpidem Tartrate (Ambien) 5 mg HSPRN PRN ORAL Insomnia 05/08/17 21:00 06/07/17 20:59 LON PATTEN May 10, 2017 22:23
[2017-05-10] MEDS: DuoNeb 0.5-3(2.5)mg/3ml neb HHN PRN (23:32)
[2017-05-11] VITALS: BP 117/57
[2017-05-11] MEDS: Norco 10mg/325mg tab ORAL PRN ×2 (00:14→20:51)
[2017-05-11 04:00] VITALS: BP 103/57
[2017-05-11 05:47] LABS: BASOPHILS % (AUTO) 0.6 % (0.0-2.0); EOSINOPHILS % (AUTO) 3.7 % (0.0-3.0); LYMPHOCYTES % (AUTO) 40.6 % (20.0-45.0); MEAN CORPUSCULAR HEMOGLOBIN 28.6 PG (27.0-31.0); MEAN CORPUSCULAR HGB CONC 30.5 G/DL (32.0-36.0); MEAN CORPUSCULAR VOLUME 94 FL (80-99); MEAN PLATELET VOLUME 5.6 FL (6.5-10.1); MONOCYTES % (AUTO) 7.2 % (1.0-10.0); NEUTROPHILS % (AUTO) 47.9 % (45.0-75.0); PLATELET COUNT 249 K/UL (150-450); RED CELL DISTRIBUTION WIDTH 14.3 % (11.6-14.8)
[2017-05-11 06:11] LABS: ANION GAP 9 (5-15); CALCIUM 9.2 mg/dL (8.6-10.2); CARBON DIOXIDE 31 mEQ/L (20-30); CHLORIDE 106 mEQ/L (98-107); CREATININE 1.1 mg/dL (0.5-0.9); HEMOLYSIS 0; POTASSIUM 4.6 mEQ/L (3.4-4.9); SODIUM 146 mEQ/L (135-145)
[2017-05-11 08:11] VITALS: BP 113/57
--- NOTE | 2017-05-11 08:28 | General Progress Note ---
Assessment/Plan Assessment/Plan (1) Lumbar Radiculopathy (2) Lumbar Herniated disc (3) Lumbar DDD (4) Lumbar Spondylosis (5) H/O Lumbar surgery (6) Chronic Lumbar compression fracture (7) Left hip pain Pt will continue Morphine, [place] and Neurontin. D/w Dr. Duffy and he concurred. Subjective Date patient seen: May 11, 2017 Time patient seen: 07:30 - am Allergies: Coded Allergies: PENICILLINS (Verified Allergy, Unknown, 03/01/12) Subjective REVIEW OF SYSTEMS: Denies rash, fever, chills, sweating, dizziness, drowsiness, blurred vision, sore throat, or change in hearing. No nausea, vomiting, diarrhea, or blood in stool or urine. No bowel or bladder incontinence. No dysuria. The patient has been complaining of low back pain. SUBJECTIVE: Patient is in sitting up and reports that her pain is a 5/10 on the medications. waiting to be seen by spinal surgeon. Objective Last 24 Hour Vital Signs Date Time Temp Pulse Resp B/P Pulse Ox O2 Delivery O2 Flow Rate FiO2 05/11/17 08:11 98.0 70 20 113/57 96 Room Air 05/11/17 04:00 98.5 70 19 103/57 98 Nasal Cannula 4.0 05/11/17 00:00 98.6 87 19 117/57 97 Nasal Cannula 4.0 05/10/17 23:34 86 20 99 Nasal Cannula 2.0 28 05/10/17 23:33 84 16 98 Nasal Cannula 2.0 28 05/10/17 20:00 98.5 91 19 125/59 96 Nasal Cannula 4.0 05/10/17 19:30 97 Nasal Cannula 3.0 32 05/10/17 19:30 80 18 Nasal Cannula 3.0 32 05/10/17 19:30 Nasal Cannula 3.0 32 05/10/17 15:53 99.0 80 20 118/74 95 Nasal Cannula 3.0 05/10/17 11:29 99.1 89 20 123/72 99 Nasal Cannula 3.0 05/10/17 09:23 87 119/60 Intake and Output 05/10/17 05/11/17 19:00 07:00 Intake Total 1240 ml 90 ml Balance 1240 ml 90 ml Intake Oral 1240 ml 90 ml # Voids 1 2 # Bowel Movements 1 Laboratory Tests 05/11/17 05:10: White Blood Count 7.0, Red Blood Count 3.00L, Hemoglobin 8.6L, Hematocrit 28.2L , Mean Corpuscular Volume 94, Mean Corpuscular Hemoglobin 28.6, Mean Corpuscular Hemoglobin Concent 30.5L, Red Cell Distribution Width 14.3, Platelet Count 249, Mean Platelet Volume 5.6L, Neutrophils (%) (Auto) 47.9, Lymphocytes (%) (Auto) 40.6, Monocytes (%) (Auto) 7.2, Eosinophils (%) (Auto) 3.7H, Basophils (%) (Auto) 0.6, Sodium Level 146H, Potassium Level 4.6, Chloride Level 106, Carbon Dioxide Level 31H, Anion Gap 9, Blood Urea Nitrogen 23, Creatinine 1.1H, Estimat Glomerular Filtration Rate , Glucose Level 95, Calcium Level 9.2 Height (Feet): 5 Height (Inches): 3.00 Weight (Pounds): 180 Objective GENERAL: Alert, awake, and oriented x3 HEENT: PERRLA. NECK: Range of motion is full in all directions. No tenderness to paracervical muscles. No adenopathy. LUNGS: Decreased breath sounds bilaterally. HEART: S1 and S2, regular. ABDOMEN: Obese. BACK: Range of motion is decreased in flexion and extension with tenderness to paraspinal muscles, trapezius, and rhomboid muscles with surgical scar noted in midline of lumbar spine. EXTREMITIES: No cyanosis. No clubbing. No edema. NEURO: No changes. LY HOLLIDAY May 11, 2017 08:28
[2017-05-11] MEDS: Aspirin EC 81mg tab ORAL SCH (08:29)
[2017-05-11] MEDS: Meloxicam 15 MG TAB ORAL SCH (08:29)
[2017-05-11] MEDS: Heparin 5000 units/ml inj SUBQ SCH ×2 (08:33→20:41)
--- NOTE | 2017-05-11 12:18 | Internal Med Progress Note ---
Subjective Date of Service: May 11, 2017 Physician Name Nate Jones Attending Physician Rakesh Salazar MD Current Medications Medications (Trade) Dose Ordered Sig/[place] Route PRN Reason Start Time Stop Time Status Last Admin Dose Admin Acetaminophen (Tylenol) 650 mg Q4H PRN ORAL fever 05/08/17 21:00 06/07/17 20:59 Acetaminophen/ Hydrocodone Bitart ([place] 10/325) 1 ea Q6H PRN ORAL pain 4-7 05/08/17 21:00 05/15/17 20:59 05/11/17 00:14 Al Hydroxide/Mg Hydroxide (Mylanta II) 30 ml Q6H PRN ORAL dyspepsia 05/08/17 21:00 06/07/17 20:59 Albuterol/ Ipratropium (DuoNeb 0.5-3(2.5)mg/3ml) 3 ml Q4H PRN HHN Shortness of Breath 05/08/17 21:45 05/13/17 21:44 05/10/17 23:32 Amlodipine Besylate (Norvasc) 10 mg DAILY ORAL 05/09/17 09:00 06/08/17 08:59 05/11/17 08:30 Aspirin (Ecotrin) 81 mg DAILY ORAL 05/09/17 09:00 06/08/17 08:59 05/11/17 08:29 Dextrose (Dextrose 50%) STAT PRN IV Hypoglycemia 05/08/17 19:00 06/07/17 18:59 Dextrose (Dextrose 50%) STAT PRN IV Hypoglycemia 05/08/17 21:00 06/07/17 20:59 Gabapentin (Neurontin) 200 mg THREE TIMES A DAY ORAL 05/10/17 18:00 06/09/17 17:59 05/11/17 12:08 Heparin Sodium (Porcine) (Heparin 5000 units/ml) 5,000 units EVERY 12 HOURS SUBQ 05/08/17 21:00 06/07/17 20:59 05/11/17 08:33 Lorazepam (Ativan 2mg/ml 1ml) 0.5 mg Q4H PRN IV For Anxiety 05/08/17 21:00 05/15/17 20:59 Meloxicam (Mobic) 15 mg DAILY ORAL 05/09/17 09:00 06/08/17 08:59 05/11/17 08:29 Morphine Sulfate (Morphine Sulfate) 2 mg EVERY 4 HOURS PRN IVP For Pain 4-6 05/08/17 21:00 05/15/17 20:59 05/08/17 22:19 Morphine Sulfate (Morphine Sulfate) 4 mg Q4H PRN IVP For Pain 7-10 05/08/17 21:00 05/15/17 20:59 05/09/17 12:41 Ondansetron HCl (Zofran) 4 mg Q6H PRN IVP Nausea & Vomiting 05/08/17 21:00 06/07/17 20:59 Polyethylene Glycol (Miralax) 17 gm HSPRN PRN ORAL Constipation 05/08/17 21:00 06/07/17 20:59 Zolpidem Tartrate (Ambien) 5 mg HSPRN PRN ORAL Insomnia 05/08/17 21:00 06/07/17 20:59 Allergies: Coded Allergies: PENICILLINS (Verified Allergy, Unknown, 03/01/12) ROS Limited/Unobtainable: No Constitutional: Reports: no symptoms HEENT: Reports: no symptoms Cardiovascular: Reports: no symptoms Respiratory: Reports: no symptoms Gastrointestinal/Abdominal: Reports: no symptoms Genitourinary: Reports: no symptoms Neurologic/Psychiatric: Reports: no symptoms Subjective 76 YO F admitted with lumbar pain. Cover for Int Med-Dr Salazar. Await orthopedics consult. Objective Last Vital Signs Date Time Temp Pulse Resp B/P Pulse Ox O2 Delivery O2 Flow Rate FiO2 05/11/17 08:30 70 113/57 05/11/17 08:11 98.0 20 96 Room Air 05/11/17 04:00 4.0 05/10/17 23:34 28 Laboratory Tests Test 05/11/17 05:10 White Blood Count 7.0 K/UL (4.8-10.8) Red Blood Count 3.00 M/UL (4.20-5.40) L Hemoglobin 8.6 G/DL (12.0-16.0) L Hematocrit 28.2 % (37.0-47.0) L Mean Corpuscular Volume 94 FL (80-99) Mean Corpuscular Hemoglobin 28.6 PG (27.0-31.0) Mean Corpuscular Hemoglobin Concent 30.5 G/DL (32.0-36.0) L Red Cell Distribution Width 14.3 % (11.6-14.8) Platelet Count 249 K/UL (150-450) Mean Platelet Volume 5.6 FL (6.5-10.1) L Neutrophils (%) (Auto) 47.9 % (45.0-75.0) Lymphocytes (%) (Auto) 40.6 % (20.0-45.0) Monocytes (%) (Auto) 7.2 % (1.0-10.0) Eosinophils (%) (Auto) 3.7 % (0.0-3.0) H Basophils (%) (Auto) 0.6 % (0.0-2.0) Sodium Level 146 mEQ/L (135-145) H Potassium Level 4.6 mEQ/L (3.4-4.9) Chloride Level 106 mEQ/L (98-107) Carbon Dioxide Level 31 mEQ/L (20-30) H Anion Gap 9 (5-15) Blood Urea Nitrogen 23 mg/dL (7-23) Creatinine 1.1 mg/dL (0.5-0.9) H Estimat Glomerular Filtration Rate mL/min (>60) Glucose Level 95 mg/dL (74-106) Calcium Level 9.2 mg/dL (8.6-10.2) Intake and Output 05/10/17 05/11/17 19:00 07:00 Intake Total 1240 ml 90 ml Balance 1240 ml 90 ml Intake Oral 1240 ml 90 ml # Voids 1 2 # Bowel Movements 1 Objective General: alert, cooperative, no distress, appears stated age Head: normocephalic, without obvious abnormality, atraumatic Eyes: conjunctivae/corneas clear. PERRL, EOM's intact Throat: lips, mucosa, and tongue normal. MMM Neck: supple, symmetrical, trachea midline, and no JVD Lungs: clear to auscultation bilaterally Heart: regular rate and rhythm, S1, S2 normal, no murmur, click, rub or gallop Abdomen: soft, non-tender, non-distended, bowel sounds normal; no masses or organomegaly Extremities: extremities normal, atraumatic, no cyanosis or edema Pulses: 2+ and symmetric Skin: skin color, texture, turgor normal; no rashes or lesions Neurologic: grossly normal, no focal deficits Assessment/Plan Problem List: (1) Intractable back pain Assessment & Plan: See pain management note. (2) left sided S1 disk prolapse with radiculopathy,acute pain syndrom Assessment & Plan: See neurology note. Await orthopedic consult - Dr Negrete (3) Hypertension (4) Hip pain, left (5) Asthma Status: unchanged NATE JONES May 11, 2017 12:18
[2017-05-11 12:30] VITALS: BP 115/60
[2017-05-11 12:53] LABS: OTHERS PATHOLOGIST COMMENT
[2017-05-11 16:08] VITALS: BP 98/55
--- NOTE | 2017-05-11 19:57 | Pulmonology Progress Note ---
Assessment/Plan Problems: (1) left sided S1 disk prolapse with radiculopathy,acute pain syndrom (2) Intractable back pain (3) EMI (obstructive sleep apnea) (4) Asthma (5) Hypertension (6) Degenerative disc disease at L5-S1 level Assessment/Plan pain management spine surgery bp controlled all notes and labs reviewed Subjective ROS Limited/Unobtainable: No Constitutional: Reports: no symptoms HEENT: Repors: no symptoms Allergies: Coded Allergies: PENICILLINS (Verified Allergy, Unknown, 03/01/12) Objective Last 24 Hour Vital Signs Date Time Temp Pulse Resp B/P Pulse Ox O2 Delivery O2 Flow Rate FiO2 05/11/17 16:08 98.0 79 19 98/55 96 Nasal Cannula 2.0 05/11/17 12:30 98.0 71 20 115/60 96 Room Air 05/11/17 08:30 70 113/57 05/11/17 08:11 98.0 70 20 113/57 96 Room Air 05/11/17 06:42 96 Nasal Cannula 3.0 05/11/17 06:42 71 18 Nasal Cannula 3.0 05/11/17 06:42 Nasal Cannula 3.0 05/11/17 04:00 98.5 70 19 103/57 98 Nasal Cannula 4.0 05/11/17 00:00 98.6 87 19 117/57 97 Nasal Cannula 4.0 05/10/17 23:34 86 20 99 Nasal Cannula 2.0 28 05/10/17 23:33 84 16 98 Nasal Cannula 2.0 28 05/10/17 20:00 98.5 91 19 125/59 96 Nasal Cannula 4.0 Intake and Output 05/10/17 05/11/17 19:00 07:00 Intake Total 1240 ml 90 ml Balance 1240 ml 90 ml Intake Oral 1240 ml 90 ml # Voids 1 2 # Bowel Movements 1 General Appearance: cachetic HEENT: normocephalic, atraumatic Respiratory/Chest: chest wall non-tender, lungs clear Breasts: no masses Cardiovascular: normal peripheral pulses, normal rate Abdomen: normal bowel sounds, soft, non tender Genitourinary: normal external genitalia Laboratory Tests 05/11/17 05:10: White Blood Count 7.0, Red Blood Count 3.00L, Hemoglobin 8.6L, Hematocrit 28.2L , Mean Corpuscular Volume 94, Mean Corpuscular Hemoglobin 28.6, Mean Corpuscular Hemoglobin Concent 30.5L, Red Cell Distribution Width 14.3, Platelet Count 249, Mean Platelet Volume 5.6L, Neutrophils (%) (Auto) 47.9, Lymphocytes (%) (Auto) 40.6, Monocytes (%) (Auto) 7.2, Eosinophils (%) (Auto) 3.7H, Basophils (%) (Auto) 0.6, Sodium Level 146H, Potassium Level 4.6, Chloride Level 106, Carbon Dioxide Level 31H, Anion Gap 9, Blood Urea Nitrogen 23, Creatinine 1.1H, Estimat Glomerular Filtration Rate , Glucose Level 95, Calcium Level 9.2 Current Medications Medications (Trade) Dose Ordered Sig/[place] Route PRN Reason Start Time Stop Time Status Last Admin Dose Admin Acetaminophen (Tylenol) 650 mg Q4H PRN ORAL fever 05/08/17 21:00 06/07/17 20:59 Acetaminophen/ Hydrocodone Bitart ([place] 10/325) 1 ea Q6H PRN ORAL pain 4-7 05/08/17 21:00 05/15/17 20:59 05/11/17 00:14 Al Hydroxide/Mg Hydroxide (Mylanta II) 30 ml Q6H PRN ORAL dyspepsia 05/08/17 21:00 06/07/17 20:59 Albuterol/ Ipratropium (DuoNeb 0.5-3(2.5)mg/3ml) 3 ml Q4H PRN HHN Shortness of Breath 05/08/17 21:45 05/13/17 21:44 05/10/17 23:32 Amlodipine Besylate (Norvasc) 10 mg DAILY ORAL 05/09/17 09:00 06/08/17 08:59 05/11/17 08:30 Aspirin (Ecotrin) 81 mg DAILY ORAL 05/09/17 09:00 06/08/17 08:59 05/11/17 08:29 Dextrose (Dextrose 50%) STAT PRN IV Hypoglycemia 05/08/17 19:00 06/07/17 18:59 Dextrose (Dextrose 50%) STAT PRN IV Hypoglycemia 05/08/17 21:00 06/07/17 20:59 Gabapentin (Neurontin) 200 mg THREE TIMES A DAY ORAL 05/10/17 18:00 06/09/17 17:59 05/11/17 17:06 Heparin Sodium (Porcine) (Heparin 5000 units/ml) 5,000 units EVERY 12 HOURS SUBQ 05/08/17 21:00 06/07/17 20:59 05/11/17 08:33 Lorazepam (Ativan 2mg/ml 1ml) 0.5 mg Q4H PRN IV For Anxiety 05/08/17 21:00 05/15/17 20:59 Meloxicam (Mobic) 15 mg DAILY ORAL 05/09/17 09:00 06/08/17 08:59 05/11/17 08:29 Morphine Sulfate (Morphine Sulfate) 2 mg EVERY 4 HOURS PRN IVP For Pain 4-6 05/08/17 21:00 05/15/17 20:59 05/08/17 22:19 Morphine Sulfate (Morphine Sulfate) 4 mg Q4H PRN IVP For Pain 7-10 05/08/17 21:00 05/15/17 20:59 05/09/17 12:41 Ondansetron HCl (Zofran) 4 mg Q6H PRN IVP Nausea & Vomiting 05/08/17 21:00 06/07/17 20:59 Polyethylene Glycol (Miralax) 17 gm HSPRN PRN ORAL Constipation 05/08/17 21:00 06/07/17 20:59 Zolpidem Tartrate (Ambien) 5 mg HSPRN PRN ORAL Insomnia 05/08/17 21:00 06/07/17 20:59 LON PATTEN May 11, 2017 19:57
[2017-05-11 20:09] VITALS: BP 111/56
[2017-05-11] MEDS: DuoNeb 0.5-3(2.5)mg/3ml neb HHN PRN (20:54)
--- NOTE | 2017-05-11 23:45 | Consultation ---
DATE OF CONSULTATION: 05/11/2017 CHIEF COMPLAINT: Low back pain. HISTORY OF PRESENT ILLNESS: The patient is a pleasant 76-year-old female, who accidentally sustained a fall. She subsequently had difficulty ambulating. She was diagnosed with some type of fracture. She also was in rehabilitation center for some period of time. She subsequently got discharged and was at home. She noticed that when she was ambulating, she has significant pain in her low back, made it difficult to ambulate. She reports that the pain is radiating from the low back down the left buttocks. Since she was presented to the ER, was admitted for intractable back pain. Orthopedic consultation was obtained for further care and recommendation. The patient does have a history of low back pain. She does report that at some point she did have an epidural injection, she thinks earlier this year. PAST MEDICAL HISTORY: Reviewed from the intake chart. PAST SURGICAL HISTORY: Reviewed from the intake chart. MEDICATIONS: Reviewed from the intake chart. PHYSICAL EXAMINATION: GENERAL: The patient is alert and oriented. She is resting comfortably in bed. EXTREMITIES/BACK: She has tenderness to lumbar spine paravertebral muscles. EHL, muscle strength is 5/5. Sensation is mostly intact to light touch. Reflexes +2. IMAGING STUDIES: MRI of the lumbar spine reviewed and shows significant disc herniation at L5-S1 with disc desiccation at L4-L5, L5-S1, moderate foraminal stenosis at L4-L5, L5-S1. ASSESSMENT: 1. L5-S1 disc herniation. 2. Foraminal stenosis at L4-L5, L5-S1 secondary to facet arthropathy and disc desiccation. DISCUSSION: At this point given her age and activity level, I think may be consideration for another lumbar epidural injection would not be unreasonable. I did provide her some relief. Alternatively, she has continued issue particularly with pain, then she will be a candidate for microdiskectomy and laminectomy. She has pretty sizable disc herniation, however, her symptoms are not as advanced as expected. If she can avoid surgery that would be ideal; if not, then obtain a surgical consultation and a spine consultation. Orestes Negrete M.D. DR: LILIA JOB#: [id number] CC:
[2017-05-12] VITALS: BP 126/58
[2017-05-12 04:05] VITALS: BP 103/55
[2017-05-12 07:04] LABS: BASOPHILS % (AUTO) 0.8 % (0.0-2.0); MEAN CORPUSCULAR HEMOGLOBIN 28.7 PG (27.0-31.0); MEAN CORPUSCULAR HGB CONC 30.8 G/DL (32.0-36.0); MEAN CORPUSCULAR VOLUME 93 FL (80-99); MEAN PLATELET VOLUME 6.2 FL (6.5-10.1); MONOCYTES % (AUTO) 8.1 % (1.0-10.0); NEUTROPHILS % (AUTO) 44.1 % (45.0-75.0); PLATELET COUNT 250 K/UL (150-450); RED BLOOD COUNT 2.87 M/UL (4.20-5.40); RED CELL DISTRIBUTION WIDTH 14.2 % (11.6-14.8); WHITE BLOOD COUNT 5.6 K/UL (4.8-10.8)
[2017-05-12 07:37] LABS: ANION GAP 7 (5-15); CARBON DIOXIDE 31 mEQ/L (20-30); CHLORIDE 104 mEQ/L (98-107); HEMOLYSIS 0; POTASSIUM 4.4 mEQ/L (3.4-4.9); SODIUM 142 mEQ/L (135-145)
[2017-05-12 07:58] VITALS: BP 117/66
--- NOTE | 2017-05-12 08:36 | General Progress Note ---
Assessment/Plan Assessment/Plan (1) Lumbar Radiculopathy (2) Lumbar Herniated disc (3) Lumbar DDD (4) Lumbar Spondylosis (5) H/O Lumbar surgery (6) Chronic Lumbar compression fracture (7) Left hip pain Pt will continue Morphine, Hadley and Neurontin. RX for Hadley 10/325mg 20 tabs and Neurontin 100mg 45 caps was written in anticipation for discharge. We plan a Transforaminal Lumbar Epidural injection L5-S1 towards the left to be done under fluoroscopy. If discharged pt and daughter was advised to have pt to f/u in the office and consult with Neurosurgeon. D/w Dr. Duffy and he concurred. Subjective Date patient seen: May 12, 2017 Time patient seen: 07:30 - am Allergies: Coded Allergies: PENICILLINS (Verified Allergy, Unknown, 03/01/12) Subjective REVIEW OF SYSTEMS: Denies rash, fever, chills, sweating, dizziness, drowsiness, blurred vision, sore throat, or change in hearing. No nausea, vomiting, diarrhea, or blood in stool or urine. No bowel or bladder incontinence. No dysuria. The patient has been complaining of low back pain. SUBJECTIVE: She continues to c/o pain in her lower back and left hip. Pain has been tolerated on the medications. She reports her pain at a 7/10 reduced to a 5/10 on the medication. She was seen by Orthopedic surgeon who recommended Epidural injection and for pt to e seen by spinal surgeon. I d/w patient and daughter that injection. can be done as an outpt and be seen by a neurosurgeon as well. Pt and daughter understand. Objective Last 24 Hour Vital Signs Date Time Temp Pulse Resp B/P Pulse Ox O2 Delivery O2 Flow Rate FiO2 05/12/17 07:58 97.0 80 20 117/66 98 Nasal Cannula 2.0 05/12/17 04:05 98.1 79 17 103/55 94 Nasal Cannula 2.0 05/12/17 00:00 98.6 95 19 126/58 94 Nasal Cannula 2.0 05/11/17 20:59 84 20 99 Nasal Cannula 2.0 28 05/11/17 20:54 82 16 96 Nasal Cannula 2.0 28 05/11/17 20:36 Nasal Cannula 3.0 32 05/11/17 20:36 96 Nasal Cannula 3.0 32 05/11/17 20:35 82 18 Nasal Cannula 3.0 32 05/11/17 20:09 98.4 83 18 111/56 96 Nasal Cannula 2.0 05/11/17 16:08 98.0 79 19 98/55 96 Nasal Cannula 2.0 05/11/17 12:30 98.0 71 20 115/60 96 Room Air Intake and Output 05/11/17 05/12/17 19:00 07:00 Intake Total 720 ml 240 ml Output Total 200 ml Balance 520 ml 240 ml Intake Oral 720 ml 240 ml Output Urine Total 200 ml # Voids 1 3 Laboratory Tests 05/12/17 05:10: White Blood Count 5.6, Red Blood Count 2.87L, Hemoglobin 8.2L, Hematocrit 26.8L , Mean Corpuscular Volume 93, Mean Corpuscular Hemoglobin 28.7, Mean Corpuscular Hemoglobin Concent 30.8L, Red Cell Distribution Width 14.2, Platelet Count 250, Mean Platelet Volume 6.2L, Neutrophils (%) (Auto) 44.1L, Lymphocytes (%) (Auto) 43.0, Monocytes (%) (Auto) 8.1, Eosinophils (%) (Auto) 4.0H, Basophils (%) (Auto) 0.8 05/12/17 05:15: Sodium Level 142, Potassium Level 4.4, Chloride Level 104, Carbon Dioxide Level 31H, Anion Gap 7, Blood Urea Nitrogen 22, Creatinine 1.0H, Estimat Glomerular Filtration Rate , Glucose Level 99, Calcium Level 9.0 Height (Feet): 5 Height (Inches): 3.00 Weight (Pounds): 180 Objective GENERAL: Alert, awake, and oriented x3 HEENT: PERRLA. NECK: Range of motion is full in all directions. No tenderness to paracervical muscles. No adenopathy. LUNGS: Decreased breath sounds bilaterally. HEART: S1 and S2, regular. ABDOMEN: Obese. BACK: Range of motion is decreased in flexion and extension with tenderness to paraspinal muscles, trapezius, and rhomboid muscles with surgical scar noted in midline of lumbar spine. EXTREMITIES: No cyanosis. No clubbing. No edema. NEURO: No changes. LY HOLLIDAY May 12, 2017 08:36
[2017-05-12] MEDS: DuoNeb 0.5-3(2.5)mg/3ml neb HHN PRN (08:37)
[2017-05-12] MEDS: Meloxicam 15 MG TAB ORAL SCH (08:43)
[2017-05-12] MEDS: Aspirin EC 81mg tab ORAL SCH (08:44)
[2017-05-12] MEDS: Heparin 5000 units/ml inj SUBQ SCH (08:50)
[2017-05-12] MEDS: Norco 10mg/325mg tab ORAL PRN (08:54)
[2017-05-12 11:37] VITALS: BP 119/66
[2017-05-12] MEDS ORDERED: NEURONTIN100 MG ORAL (13:17)
[2017-05-12] MEDS ORDERED: NORCO 10-325 T1 EACH ORAL (13:17)
--- NOTE | 2017-05-12 14:57 | Pulmonology Progress Note ---
Assessment/Plan Problems: (1) left sided S1 disk prolapse with radiculopathy,acute pain syndrom (2) Degenerative disc disease at L5-S1 level (3) EMI (obstructive sleep apnea) (4) Asthma (5) Intractable back pain (6) Hypertension Assessment/Plan awaiting spine evaluation, Dr Aceves saw the pt, will f/u as outpatient pain management all notes reviewed d/w pain specialist Epidural scheduled as out patient Subjective ROS Limited/Unobtainable: No Constitutional: Reports: no symptoms HEENT: Repors: no symptoms Respiratory: Reports: no symptoms Allergies: Coded Allergies: PENICILLINS (Verified Allergy, Unknown, 03/01/12) Objective Last 24 Hour Vital Signs Date Time Temp Pulse Resp B/P Pulse Ox O2 Delivery O2 Flow Rate FiO2 05/12/17 11:37 97.6 78 20 119/66 100 Nasal Cannula 2.0 05/12/17 08:44 86 117/66 05/12/17 08:44 84 18 100 Nasal Cannula 2.0 05/12/17 08:30 86 16 96 Nasal Cannula 2.0 28 05/12/17 07:58 97.0 80 20 117/66 98 Nasal Cannula 2.0 05/12/17 07:23 Nasal Cannula 2.0 05/12/17 07:22 96 Nasal Cannula 2.0 05/12/17 07:21 86 16 Nasal Cannula 2.0 05/12/17 04:05 98.1 79 17 103/55 94 Nasal Cannula 2.0 05/12/17 00:00 98.6 95 19 126/58 94 Nasal Cannula 2.0 05/11/17 20:59 84 20 99 Nasal Cannula 2.0 05/11/17 20:54 82 16 96 Nasal Cannula 2.0 28 05/11/17 20:36 Nasal Cannula 3.0 32 05/11/17 20:36 96 Nasal Cannula 3.0 32 05/11/17 20:35 82 18 Nasal Cannula 3.0 32 05/11/17 20:09 98.4 83 18 111/56 96 Nasal Cannula 2.0 05/11/17 16:08 98.0 79 19 98/55 96 Nasal Cannula 2.0 Intake and Output 05/11/17 05/12/17 19:00 07:00 Intake Total 720 ml 240 ml Output Total 200 ml Balance 520 ml 240 ml Intake Oral 720 ml 240 ml Output Urine Total 200 ml # Voids 1 3 General Appearance: WD/WN HEENT: normocephalic, atraumatic Respiratory/Chest: chest wall non-tender, lungs clear Breasts: no masses Cardiovascular: normal peripheral pulses Abdomen: normal bowel sounds, soft, non tender, no organomegaly Laboratory Tests 05/12/17 05:10: White Blood Count 5.6, Red Blood Count 2.87L, Hemoglobin 8.2L, Hematocrit 26.8L , Mean Corpuscular Volume 93, Mean Corpuscular Hemoglobin 28.7, Mean Corpuscular Hemoglobin Concent 30.8L, Red Cell Distribution Width 14.2, Platelet Count 250, Mean Platelet Volume 6.2L, Neutrophils (%) (Auto) 44.1L, Lymphocytes (%) (Auto) 43.0, Monocytes (%) (Auto) 8.1, Eosinophils (%) (Auto) 4.0H, Basophils (%) (Auto) 0.8 05/12/17 05:15: Sodium Level 142, Potassium Level 4.4, Chloride Level 104, Carbon Dioxide Level 31H, Anion Gap 7, Blood Urea Nitrogen 22, Creatinine 1.0H, Estimat Glomerular Filtration Rate , Glucose Level 99, Calcium Level 9.0 Current Medications Medications (Trade) Dose Ordered Sig/[place] Route PRN Reason Start Time Stop Time Status Last Admin Dose Admin Acetaminophen (Tylenol) 650 mg Q4H PRN ORAL fever 05/08/17 21:00 06/07/17 20:59 Acetaminophen/ Hydrocodone Bitart (Nitro 10/325) 1 ea Q6H PRN ORAL pain 4-7 05/08/17 21:00 05/15/17 20:59 05/12/17 08:54 Al Hydroxide/Mg Hydroxide (Mylanta II) 30 ml Q6H PRN ORAL dyspepsia 05/08/17 21:00 06/07/17 20:59 Albuterol/ Ipratropium (DuoNeb 0.5-3(2.5)mg/3ml) 3 ml Q4H PRN HHN Shortness of Breath 05/08/17 21:45 05/13/17 21:44 05/12/17 08:37 Amlodipine Besylate (Norvasc) 10 mg DAILY ORAL 05/09/17 09:00 06/08/17 08:59 05/12/17 08:44 Aspirin (Ecotrin) 81 mg DAILY ORAL 05/09/17 09:00 06/08/17 08:59 05/12/17 08:44 Dextrose (Dextrose 50%) STAT PRN IV Hypoglycemia 05/08/17 19:00 06/07/17 18:59 Dextrose (Dextrose 50%) STAT PRN IV Hypoglycemia 05/08/17 21:00 06/07/17 20:59 Gabapentin (Neurontin) 300 mg THREE TIMES A DAY ORAL 05/12/17 09:00 06/11/17 08:59 05/12/17 12:22 Heparin Sodium (Porcine) (Heparin 5000 units/ml) 5,000 units EVERY 12 HOURS SUBQ 05/08/17 21:00 06/07/17 20:59 05/12/17 08:50 Lorazepam (Ativan 2mg/ml 1ml) 0.5 mg Q4H PRN IV For Anxiety 05/08/17 21:00 05/15/17 20:59 Meloxicam (Mobic) 15 mg DAILY ORAL 05/09/17 09:00 06/08/17 08:59 05/12/17 08:43 Morphine Sulfate (Morphine Sulfate) 2 mg EVERY 4 HOURS PRN IVP For Pain 4-6 05/08/17 21:00 05/15/17 20:59 05/08/17 22:19 Morphine Sulfate (Morphine Sulfate) 4 mg Q4H PRN IVP For Pain 7-10 05/08/17 21:00 05/15/17 20:59 05/09/17 12:41 Ondansetron HCl (Zofran) 4 mg Q6H PRN IVP Nausea & Vomiting 05/08/17 21:00 06/07/17 20:59 Polyethylene Glycol (Miralax) 17 gm HSPRN PRN ORAL Constipation 05/08/17 21:00 06/07/17 20:59 Zolpidem Tartrate (Ambien) 5 mg HSPRN PRN ORAL Insomnia 05/08/17 21:00 06/07/17 20:59 LON PATTEN May 12, 2017 14:57
[2017-05-12 15:52] VITALS: BP 119/60
--- NOTE | 2017-05-13 17:24 | Discharge Summary ---
Discharge Summary Hospital Course Date of Admission May 08, 2017 at 20:41 Date of Discharge May 12, 2017 at 16:30 Admitting Diagnosis intractable back pain HPI Crystal Jordan is a 76 year old female who was admitted on May 08, 2017 at 20:41 for Intractable Back Pain Hospital Course [id number] Discharge Discharge Disposition Patient was discharged to Home (01) Discharge Diagnoses: Andreina Feng NP May 13, 2017 17:24
--- NOTE | 2017-05-17 18:45 | Discharge Summary 2 SIG ---
DATE OF ADMISSION: 05/08/2017 DATE OF DISCHARGE: 05/12/2017 CONSULTANTS: 1. Prince Giron M.D. 2. Sean Duffy M.D. 3. Orestes Negrete M.D. 4. Anthony Bernal M.D. BRIEF HOSPITAL COURSE: The patient is a 76-year-old female who presented with low back pain approximately a month ago. The pain radiated to the left hip. She denied heavy lifting and denied trauma. On evaluation at ED, the patient had intractable pain, 07/19. CT of the pelvis with no contrast showed no fracture or dislocation with [id number] bilateral hip degeneration, small fatty umbilical hernia, and calcified uterine fibroids. CT of the LS spine with no contrast showed disk bulge and facet arthropathy with narrowing of the central canal and neuroforaminal in multiple levels. There was no evidence of fractures. She was given pain management and due to the patient's intractable pain and inability to do ADLs the patient was admitted to the medical floor for lumbar pain with radiculopathy to the left hip, hypertension, osteoarthritis, and asthma. She underwent pain management with Dr. Duffy and was given morphine, [place], and Neurontin. Neurological evaluation done by Dr. Bernal showed diskogenic disease with significant left L5-S1 disk prolapse with radiculopathic pain. Rheumatoid factor was 56. MANJINDER was negative. ESR was 112. Orthopedic consultation was obtained and assessed that at the patient's age and activity level, she would benefit from the lumbar epidural injection. She can be candidate for microdiskectomy and laminectomy as there was pretty sizable disk herniation. She also underwent C-spine evaluation with Dr. Aceves and the patient advised to follow up as outpatient. She was also scheduled for epidural injections with Dr. Duffy. The patient and daughter was advised to followup. FINAL DIAGNOSES: 1. Left-sided S1 disk prolapse with radiculopathy, acute pain syndrome. 2. Degenerative disk disease at L5-S1. 3. Obstructive sleep apnea. 4. Asthma. 5. Intractable back pain. 6. Hypertension. 7. Lumbar herniated disk with radiculopathy. 8. Lumbar spondylosis. 9. Chronic obstructive pulmonary disease. 10. Mild anemia. 11. Obesity. 12. History of coronary artery disease. I have been assigned to dictate discharge summary on this account and I was not involved in the patient's management. Andreina Feng N.P. DR: Pollo JOB#: [id number] CC:
== END 2017-05-12 16:30 | disposition home or self-care (01) | DRG 552 ==
LOC: EDBD 15:06 → EMR 18:08 → EDBEDREQ 20:22 → 3E 20:41
DX: M51.16 Intervertebral disc disorders with radiculopathy, lumbar region (principal); J44.9 Chronic obstructive pulmonary disease, unspecified; D64.9 Anemia, unspecified; M53.3 Sacrococcygeal disorders, not elsewhere classified; M51.37 Other intervertebral disc degeneration, lumbosacral region; I10 Essential (primary) hypertension; J45.909 Unspecified asthma, uncomplicated; M19.90 Unspecified osteoarthritis, unspecified site; G47.33 Obstructive sleep apnea (adult) (pediatric); Z91.81 History of falling; Z88.0 Allergy status to penicillin; E66.9 Obesity, unspecified; I25.10 Atherosclerotic heart disease of native coronary artery without angina pectoris; M47.896 Other spondylosis, lumbar region; M48.06 Spinal stenosis, lumbar region; E53.8 Deficiency of other specified B group vitamins
CPT/HCPCS: 36415; 72131; 72158; 72192; 80048; 80053; 82378; 82607; 82746; 83540; 83550; 83615; 84443; 85007; 85025; 85044; 85060; 85610; 85651; 85730; 86039; 86140; 86431; 94640; 94664; 94760; A9585; J7620

== ENCOUNTER 2017-10-24 09:58 | Emergency (ER) | payer MEDICARE ==
[~2017-10-24] VITALS: Ht 160 cm; Wt 77.1 kg
[~2017-10-24 09:58] MED LIST changes: +NEURONTIN100 MG ORAL; +NORCO 10-325 T1 EACH ORAL
[2017-10-24] MEDS ORDERED: ROBAXIN500 MG PO (10:19)
[2017-10-24] MEDS ORDERED: ACETAMINOPHEN-1 EAC1 ORAL (10:19)
[2017-10-24] MEDS ORDERED: BACTRIM DS TAB1 EAC1 ORAL (10:19)
[2017-10-24 10:27] VITALS: BP 145/86
[2017-10-24 10:28] VITALS: BP 145/86
--- NOTE | 2017-10-24 10:34 | Emergency Room Report ---
History of Present Illness General Chief Complaint: Female Urogenital Problems Source: Patient Present Illness [facility] The patient is a 77-year-old female walked in with 4 days of left lower back pain associated with polyuria and chills. Denies fever, abdominal pain, nausea or vomiting. Endorses frequent UTIs Denies any trauma, chest pain, shortness of breath, syncope, weakness. Allergies: Coded Allergies: PENICILLINS (Verified Allergy, Unknown, 03/01/12) Patient History Past Medical History: other - RA Past Surgical History: none Pertinent Family History: none Social History: Denies: smoking, alcohol use, drug use Now: No Immunizations: UTD Reviewed Nursing Documentation: PMH: Agreed, PSxH: Agreed Nursing Documentation-PMH Hx Cardiac Problems: Yes Hx Hypertension: Yes Hx Asthma: Yes Hx Cancer: No Hx Gastrointestinal Problems: No Hx Neurological Problems: No Hx Neurologic Surgery: Yes - LOWER BACK SURGERY-2005 Review of Systems All Other Systems: negative except mentioned in HPI Physical Exam Vital Signs Date Time Temp Pulse Resp B/P (MAP) Pulse Ox O2 Delivery O2 Flow Rate FiO2 10/24/17 10:04 98.8 74 20 145/86 95 Room Air Sp02 EP Interpretation: reviewed, normal General Appearance: normal inspection, well appearing, no apparent distress, alert, GCS 15, non-toxic Head: normocephalic, atraumatic Eyes: bilateral eye PERRL, bilateral eye EOMI ENT: normal ENT inspection, hearing grossly normal, normal pharynx, no angioedema, normal voice, TMs + canals normal, uvula midline, moist mucus membranes Neck: normal inspection, full range of motion, supple, thyroid normal, no meningismus, no bony tend Respiratory: normal inspection, lungs clear, normal breath sounds, no rhonchi, no respiratory distress, no retraction, no accessory muscle use, no wheezing, speaking full sentences Cardiovascular #1: regular rate, rhythm, no edema, no JVD, normal capillary refill Gastrointestinal: normal inspection, normal bowel sounds, non tender, soft, no mass, no peritonitis, non-distended, no guarding, no hernia, no pulsatile mass Genitourinary: CVA tenderness (L) Musculoskeletal: normal inspection, back normal, normal range of motion, no calf tenderness, pelvis stable, Jeni's Sign negative Neurologic: normal inspection, alert, oriented x3, responsive, quality systems engineer III-XII nml as tested, motor strength/tone normal, cerebellar normal, normal gait, speech normal Psychiatric: normal inspection, judgement/insight normal, mood/affect normal, no suicidal/homicidal ideation, no delusions Skin: normal inspection, normal color, no rash Lymphatic: normal inspection, no adenopathy Medical Decision Making Diagnostic Impression: Primary Impression: Pyelonephritis ER Course Patient with clinical signs of left-sided pyelonephritis given 4 days of left flank pain, positive CVAT on left side, and polyuria. Past urine culture shows sensitivity to most antibiotics Treatment with Bactrim for 10 days for pyelonephritis Was also given Tylenol with Codeine and Robaxin for her back pain and chronic shoulder pain She will followup with PMD and sign writer letterer or painter ER course: Patient has remained stable during ED stay. Disposition: Patient is to be discharged to home. Prescriptions given are robaxin, T3, bactrim Patient is instructed to follow up with their primary care doctor within 5 days. Strict return precautions discussed with patient such as fever, chills, worsening/severe pain, nausea, vomiting, which may indicate severe illness. Patient verbalizes understanding and agrees with plan. Please note that this Emergency Department Report was dictated using [employer] nurse technology software, occasionally this can lead to erroneous entry secondary to interpretation by the dictation equipment Last Vital Signs Date Time Temp Pulse Resp B/P (MAP) Pulse Ox O2 Delivery O2 Flow Rate FiO2 10/24/17 10:28 98.8 74 20 145/86 95 Room Air Status: improved Disposition: HOME, SELF-CARE Condition: Improved Scripts Acetaminophen With Codeine (T#3) (TYLENOL #3 TAB*) Y Tab 1 TAB ORAL Q8H Y for For Pain for 7 Days, #30 TAB Prov: GIGI SCHAEFFER M.D. 10/24/17 Methocarbamol* (ROBAXIN*) 500 Mg Tablet 500 MG PO TID for back pain for 7 Days, #30 TAB 0 Refills Prov: GIGI SCHAEFFER M.D. 10/24/17 Trimethoprim/Sulfamethoxazole 160/800* (BACTRIM DS TABLET*) 1 Each Tablet 1 TAB ORAL Q12H for 10 Days, #20 TAB 0 Refills Prov: GIGI SCHAEFFER M.D. 10/24/17 Referrals: NOT CHOSEN IPA/,REFERRING (PCP) Patient Instructions: Pyelonephritis, Adult, [id number] Additional Instructions: - Take All of antibiotic Bactrim for kidney infection - Take Robaxin with Tylenol #3 for low back pain - Follow up with pain management doctor as needed GIGI SCHAEFFER M.D. Oct 24, 2017 10:34
== END 2017-10-24 10:32 | disposition home or self-care (01) ==
LOC: EMR 10:24
DX: N12 Tubulo-interstitial nephritis, not specified as acute or chronic (principal)
CPT/HCPCS: 87086; 87181; 99283